=== PATIENT | female | born 1970 | race Caucasian/White ===

== ENCOUNTER 2016-06-06 16:39 | Emergency (ER) | payer OTHER ==
[~2016-06-06] VITALS: Ht 152.4 cm; Wt 67.1 kg
[~2016-06-06 16:39] MED LIST: 'XANAX1 MG PO; ALBUTEROL0.09 MG/A2 INH; ALLERGY RELIEF4 MG PO; AMOXICILLIN500 MG PO; AMOXIL500 MG PO; ANAPROX DS550 MG PO; ANTIVERT/2525 M1 PO; ANTIVERT/2525 MG PO; ANTIVERT25 MG PO; ANUSOL HC30 GM PO; ATARAX,VISTARIL50 MG PO; ATARAX25 MG PO; ATIVAN0.5 MG PO; ATIVAN1 MG PO; AUGMENTIN 875 M1 TA1 PO; AUGMENTIN 875875 MG PO; B12,B-12,B 12500 MC1 PO; BACTRIM 400 MG-1 TAB PO; BACTRIM DS 8001 TA1 PO; BACTROBAN OINT0.9 GM T; BENADRYL ALLERG25 M5 PO; BENADRYL25 M2 PO; CELEXA40 MG PO; CITALOPRAM40 MG PO; CLARITIN-D 12 H1 TAB PO; CLARITIN10 MG PO; CLEOCIN150 MG PO; CLINDAMYCIN HC300 MG PO; CLINDAMYCIN150 MG PO; CLOBEX 125 ML125 ML T; CLONAZEPAM0.5 MG; CLONAZEPAM0.5 MG PO; DELTASONE20 M1 PO; DRAMAMINE50 M1 PO; EXCEDRIN MIGRAI1 TA1 PO; FLEXERIL10 MG PO; FLONASE ALLERG9.9 ML NAS; FLOVENT0.044 MG/A INH; KETOROLAC10 MG PO; KLONOPIN0.5 MG PO; KLONOPIN1 MG PO; LIDEX 0.05% CRE15 GM T; LOTRIMIN 1%15 GM T; MAGNESIUM400 MG PO; MEDROL DOSEPAK4 MG PO; MOTRIN800 MG PO; MUCINEX SINUS-1 EAC1 PO; MUCINEX600 MG PO; NAPROSYN500 MG PO; NAPROXEN550 MG PO; NASONEX0.05 MG/AC NS; NILSTAT,MY500000 UN/ PO; PEPCID20 MG PO; PEPCID40 MG PO; PERCOCET 325 MG1 TA2 PO; PHENERGAN W/DM120 ML PO; PREDNICOT10 MG PO; PREDNISONE10 MG PO; PREDNISONE50 MG PO; PRILOSEC10 MG PO; PROMETHAZINE W180 ML PO; PROTONIX20 MG PO; PROTONIX40 MG PO; PROVENTIL0.09 MG/A1 INH; REGLAN10 MG PO; REMERON15 M1 PO; RISPERDAL0.5 MG PO; ROBITUSSIN; ROBITUSSIN DM 105 ML PO; ROBITUSSIN5 ML PO; SINGULAIR10 MG PO; TESSALON PERLE200 MG PO; TOPROL XL25 MG PO; TRAMADOL50 MG PO; ULTRAM50 MG PO; VALIUM5 MG PO; VIBRAMYCIN100 MG PO; VICO10300 PO; VISTARIL25 M1 PO; VISTARIL25 M2 PO; VISTARIL25 MG PO; XANAX1 MG PO; ZITHROMAX Z PA250 MG PO; ZITHROMAX250 MG PO; ZYRTEC10 MG PO
[2016-06-06] MEDS ORDERED: CELEXA20 MG PO (16:56)
[2016-06-06 17:08] LABS: BASO # 0.1 10*3/uL (0.0-0.1); BASO % 0.7 % (0.0-1.0); EOS # 0.3 10*3/uL (0.0-0.4); EOS % 2.5 % (1.0-4.0); HEMATOCRIT 46.5 % (37.0-47.0); HEMOGLOBIN 15.5 g/dl (12.0-16.0); LYMPH # 2.6 10*3/uL (1.3-4.4); LYMPH % 25.9 % (27.0-41.0); MEAN CELL VOLUME 89.1 fl (81.0-99.0); MEAN CORPUSCULAR HGB 29.7 pg (27.0-31.0); MEAN CORPUSCULAR HGB CONC 33.3 g/dl (33.0-37.0); MEAN PLATELET VOLUME 10.5 fl (9.6-12.3); MONO # 0.8 10*3/uL (0.1-1.0); MONO % 7.6 % (3.0-9.0); NEUT # 6.4 10*3/uL (2.3-7.9); PLATELET COUNT AUTOMATED 314 10*3/uL (130-400); RED BLOOD COUNT 5.22 10*6/uL (4.10-5.10); RED CELL DISTRI WIDTH 13.8 % (0-14.5); WHITE BLOOD COUNT 10.1 10*3/uL (4.8-10.8)
[2016-06-06 17:15] LABS: INTERNATIONAL NORM RATIO 0.9 (2.0-3.5)
[2016-06-06 17:24] LABS: ALBUMIN 3.5 gm/dl (3.1-4.5); ALKALINE PHOSPHATASE 77 U/L (45-117); BILIRUBIN, TOTAL 0.4 mg/dl (0.2-1.0); BUN 7 mg/dl (7-24); CARBON DIOXIDE 21 mmol/L (21-32); CHLORIDE 107 mmol/L (98-107); CKMB < 0.5 ng/ml (0.5-3.6); CPK 54 U/L (26-192); EST GLOM FILT AFRICAN AMERICAN > 60 ml/min; GLUCOSE 91 mg/dL (65-99); LDH 133 U/L (84-246); MAGNESIUM 1.7 mg/dL (1.5-2.1); POTASSIUM 3.6 mmol/L (3.5-5.1); SGOT/AST 14 IU/L (3-35); SGPT/ALT 15 U/L (12-78); SODIUM 139 mmol/L (136-145); TOTAL PROTEIN 6.8 gm/dL (6.4-8.2); TROPONIN I < 0.015 ng/ml (<0.045)
[2016-06-06 17:52] LABS: BILIRUBIN NEGATIVE (NEGATIVE); BLOOD NEGATIVE (NEGATIVE); CLARITY SL CLOUDY (CLEAR); COLOR YELLOW (YELLOW); GLUCOSE NEGATIVE (NEGATIVE); KETONE NEGATIVE (NEGATIVE); LEUKO ESTERASE NEGATIVE (NEGATIVE); NITRITE NEGATIVE (NEGATIVE); PROTEIN NEGATIVE (NEGATIVE); SPECIFIC GRAVITY <= 1.005 (1.005-1.030); UROBILINOGEN 0.2 E.U./dl (0.2-1.0)
[2016-06-06 18:01] LABS: BACTERIA TRACE; RBC 0-2 rbc/hpf (0-2); URINE REFLEX COMMENT NO (NO); WBC 0-2 wbc/hpf (0-5)
[2016-06-06] MEDS ORDERED: XANAX0.5 MG PO (18:11)
[2016-06-06] MEDS ORDERED: ZYRTEC10 MG PO (18:11)
[2016-06-06] MEDS ORDERED: ZITHROMAX250 MG PO (18:11)
== END 2016-06-06 18:25 | disposition home or self-care (01) ==
LOC: ED 16:39
PROVIDERS: Physician Assistant
DX: F41.9 Anxiety disorder, unspecified (principal); R42 Dizziness and giddiness; J40 Bronchitis, not specified as acute or chronic; F17.200 Nicotine dependence, unspecified, uncomplicated; Z98.51 Tubal ligation status; Z90.89 Acquired absence of other organs; Z79.899 Other long term (current) drug therapy; Z88.5 Allergy status to narcotic agent; Z88.0 Allergy status to penicillin; Z88.1 Allergy status to other antibiotic agents

== ENCOUNTER 2016-06-20 13:27 | Emergency (ER) | payer OTHER ==
[~2016-06-20] VITALS: Wt 67.1 kg
[~2016-06-20 13:27] MED LIST changes: +CELEXA20 MG PO; +XANAX0.5 MG PO
[2016-06-20] MEDS ORDERED: NORCO 10-325 T1 EACH PO (15:38)
[2016-06-21] MEDS ORDERED: Zofran4 MG PO (08:37)
== END 2016-06-20 15:49 | disposition home or self-care (01) ==
LOC: ED 13:27
DX: S42.021A Displaced fracture of shaft of right clavicle, initial encounter for closed fracture (principal); S16.1XXA Strain of muscle, fascia and tendon at neck level, initial encounter; S00.93XA Contusion of unspecified part of head, initial encounter; K21.9 Gastro-esophageal reflux disease without esophagitis; F41.9 Anxiety disorder, unspecified; Z88.0 Allergy status to penicillin; Z88.1 Allergy status to other antibiotic agents; Z88.6 Allergy status to analgesic agent; Z79.899 Other long term (current) drug therapy; M19.90 Unspecified osteoarthritis, unspecified site; W10.9XXA Fall (on) (from) unspecified stairs and steps, initial encounter; Y93.89 Activity, other specified; Y92.9 Unspecified place or not applicable; Y99.9 Unspecified external cause status

== ENCOUNTER 2016-06-21 06:51 | Emergency (ER) | payer OTHER ==
[~2016-06-21] VITALS: Ht 152.4 cm; Wt 67.1 kg
[~2016-06-21 06:51] MED LIST changes: +NORCO 10-325 T1 EACH PO
[2016-06-21] MEDS ORDERED: Zofran4 MG PO (08:37)
== END 2016-06-21 09:15 | disposition home or self-care (01) ==
LOC: ED 06:51
DX: R51 Headache (principal); R11.2 Nausea with vomiting, unspecified; F41.9 Anxiety disorder, unspecified; M19.90 Unspecified osteoarthritis, unspecified site; G89.29 Other chronic pain; K21.9 Gastro-esophageal reflux disease without esophagitis; Z88.0 Allergy status to penicillin; Z88.1 Allergy status to other antibiotic agents; Z88.6 Allergy status to analgesic agent; Z79.899 Other long term (current) drug therapy

== ENCOUNTER 2016-07-30 08:36 | Emergency (ER) | payer OTHER ==
[~2016-07-30] VITALS: Wt 67.6 kg
[~2016-07-30 08:36] MED LIST changes: +Zofran4 MG PO
[2016-07-30 09:33] LABS: BASO # 0.1 10*3/uL (0.0-0.1); BASO % 0.5 % (0.0-1.0); EOS # 0.3 10*3/uL (0.0-0.4); EOS % 2.7 % (1.0-4.0); HEMATOCRIT 44.6 % (37.0-47.0); HEMOGLOBIN 15.6 g/dl (12.0-16.0); LYMPH # 2.9 10*3/uL (1.3-4.4); LYMPH % 25.8 % (27.0-41.0); MEAN CELL VOLUME 86.6 fl (81.0-99.0); MEAN CORPUSCULAR HGB 30.3 pg (27.0-31.0); MEAN PLATELET VOLUME 10.5 fl (9.6-12.3); MONO # 0.8 10*3/uL (0.1-1.0); MONO % 7.4 % (3.0-9.0); NEUT # 7.1 10*3/uL (2.3-7.9); NEUT % 63.3 % (47.0-73.0); PLATELET COUNT AUTOMATED 285 10*3/uL (130-400); RED BLOOD COUNT 5.15 10*6/uL (4.10-5.10); RED CELL DISTRI WIDTH 12.9 % (0-14.5); WHITE BLOOD COUNT 11.2 10*3/uL (4.8-10.8)
[2016-07-30 09:46] LABS: ALBUMIN 3.9 gm/dl (3.1-4.5); ALKALINE PHOSPHATASE 78 U/L (45-117); BILIRUBIN, TOTAL 0.3 mg/dl (0.2-1.0); BUN 9 mg/dl (7-24); CARBON DIOXIDE 20 mmol/L (21-32); CHLORIDE 108 mmol/L (98-107); EST GLOM FILT AFRICAN AMERICAN > 60 ml/min; GLUCOSE 110 mg/dL (65-99); POTASSIUM 3.6 mmol/L (3.5-5.1); SGOT/AST 15 IU/L (3-35); SGPT/ALT 16 U/L (12-78); SODIUM 142 mmol/L (136-145); TOTAL PROTEIN 7.2 gm/dL (6.4-8.2)
[2016-07-30 10:51] LABS: BILIRUBIN NEGATIVE (NEGATIVE); BLOOD NEGATIVE (NEGATIVE); CLARITY CLEAR (CLEAR); COLOR YELLOW (YELLOW); GLUCOSE NEGATIVE (NEGATIVE); KETONE NEGATIVE (NEGATIVE); LEUKO ESTERASE NEGATIVE (NEGATIVE); NITRITE NEGATIVE (NEGATIVE); PH 5.5 (5.0-9.0); PROTEIN NEGATIVE (NEGATIVE); SPECIFIC GRAVITY <= 1.005 (1.005-1.030); UROBILINOGEN 0.2 E.U./dl (0.2-1.0)
[2016-07-30 10:58] LABS: URINE REFLEX COMMENT NO (NO)
[2016-07-30] MEDS ORDERED: XANAX1 MG PO (11:09)
[2016-07-30 11:10] LABS: URINE AMPHETAMINES < 1000 (1000ng/ml); URINE BARBITURATES < 200 (200ng/ml); URINE COCAINE < 300 (300ng/ml)
== END 2016-07-30 11:28 | disposition home or self-care (01) ==
LOC: ED 08:36
PROVIDERS: Registered Nurse
DX: F41.9 Anxiety disorder, unspecified (principal); F13.20 Sedative, hypnotic or anxiolytic dependence, uncomplicated; F17.200 Nicotine dependence, unspecified, uncomplicated; Z88.0 Allergy status to penicillin; Z88.1 Allergy status to other antibiotic agents; Z88.6 Allergy status to analgesic agent; Z79.899 Other long term (current) drug therapy

== ENCOUNTER 2016-07-31 18:19 | Emergency (ER) | payer OTHER ==
[~2016-07-31] VITALS: Ht 152.4 cm; Wt 65.8 kg
== END 2016-07-31 19:04 | disposition home or self-care (01) ==
LOC: ED 18:19
DX: F41.9 Anxiety disorder, unspecified (principal); R03.0 Elevated blood-pressure reading, without diagnosis of hypertension; F17.200 Nicotine dependence, unspecified, uncomplicated; K21.9 Gastro-esophageal reflux disease without esophagitis; M19.90 Unspecified osteoarthritis, unspecified site; Z88.0 Allergy status to penicillin; Z88.1 Allergy status to other antibiotic agents; Z88.6 Allergy status to analgesic agent; Z79.899 Other long term (current) drug therapy

== ENCOUNTER → 2016-08-18 | Outpatient (CLI) | payer OTHER | END | disposition home or self-care (01) | LOC: RAD 10:43 | DX: M81.0 Age-related osteoporosis without current pathological fracture (principal) ==

== ENCOUNTER 2016-08-29 11:39 | Emergency (ER) | payer OTHER ==
[~2016-08-29] VITALS: Ht 162.5 cm; Wt 70.3 kg
[2016-08-29 12:30] LABS: BILIRUBIN NEGATIVE (NEGATIVE); BLOOD NEGATIVE (NEGATIVE); CLARITY CLEAR (CLEAR); COLOR STRAW (YELLOW); GLUCOSE NEGATIVE (NEGATIVE); KETONE NEGATIVE (NEGATIVE); LEUKO ESTERASE NEGATIVE (NEGATIVE); NITRITE NEGATIVE (NEGATIVE); PROTEIN NEGATIVE (NEGATIVE); UROBILINOGEN 0.2 E.U./dl (0.2-1.0)
[2016-08-29 12:42] LABS: URINE REFLEX COMMENT NO (NO)
== END 2016-08-29 12:48 | disposition home or self-care (01) ==
LOC: ED 11:39
PROVIDERS: Emergency Medicine
DX: F41.9 Anxiety disorder, unspecified (principal); F13.20 Sedative, hypnotic or anxiolytic dependence, uncomplicated; M19.90 Unspecified osteoarthritis, unspecified site; K21.9 Gastro-esophageal reflux disease without esophagitis; F17.200 Nicotine dependence, unspecified, uncomplicated; Z88.0 Allergy status to penicillin; Z88.1 Allergy status to other antibiotic agents; Z88.6 Allergy status to analgesic agent; Z79.899 Other long term (current) drug therapy

== ENCOUNTER 2016-11-23 10:08 | Emergency (ER) | payer OTHER ==
[~2016-11-23] VITALS: Ht 167.6 cm; Wt 68.0 kg
== END 2016-11-23 10:54 | disposition home or self-care (01) ==
LOC: ED 10:08
DX: F41.0 Panic disorder [episodic paroxysmal anxiety] (principal); K21.9 Gastro-esophageal reflux disease without esophagitis; M19.90 Unspecified osteoarthritis, unspecified site; G89.29 Other chronic pain; F17.200 Nicotine dependence, unspecified, uncomplicated; Z98.51 Tubal ligation status; Z90.89 Acquired absence of other organs; Z98.890 Other specified postprocedural states; Z79.899 Other long term (current) drug therapy; Z88.0 Allergy status to penicillin; Z88.1 Allergy status to other antibiotic agents; Z88.5 Allergy status to narcotic agent

== ENCOUNTER 2017-01-08 09:56 | Emergency (ER) | payer OTHER ==
[~2017-01-08] VITALS: Ht 152.4 cm; Wt 70.8 kg
[2017-01-08 10:15] LABS: BILIRUBIN NEGATIVE (NEGATIVE); BLOOD NEGATIVE (NEGATIVE); CLARITY CLEAR (CLEAR); COLOR YELLOW (YELLOW); GLUCOSE NEGATIVE (NEGATIVE); KETONE NEGATIVE (NEGATIVE); LEUKO ESTERASE NEGATIVE (NEGATIVE); NITRITE NEGATIVE (NEGATIVE); PH 5.5 (5.0-9.0); SPECIFIC GRAVITY <= 1.005 (1.005-1.030); UROBILINOGEN 0.2 E.U./dl (0.2-1.0)
[2017-01-08 10:17] LABS: BASO % 0.3 % (0.0-1.0); EOS # 0.2 10*3/uL (0.0-0.4); EOS % 1.6 % (1.0-4.0); HEMATOCRIT 44.3 % (37.0-47.0); HEMOGLOBIN 14.9 g/dl (12.0-16.0); LYMPH # 3.2 10*3/uL (1.3-4.4); LYMPH % 27.5 % (27.0-41.0); MEAN CELL VOLUME 89.9 fl (81.0-99.0); MEAN CORPUSCULAR HGB 30.2 pg (27.0-31.0); MEAN CORPUSCULAR HGB CONC 33.6 g/dl (33.0-37.0); MEAN PLATELET VOLUME 10.5 fl (9.6-12.3); MONO # 0.8 10*3/uL (0.1-1.0); NEUT # 7.3 10*3/uL (2.3-7.9); NEUT % 63.3 % (47.0-73.0); PLATELET COUNT AUTOMATED 271 10*3/uL (130-400); RED BLOOD COUNT 4.93 10*6/uL (4.10-5.10); RED CELL DISTRI WIDTH 13.4 % (0-14.5); WHITE BLOOD COUNT 11.5 10*3/uL (4.8-10.8)
[2017-01-08 10:23] LABS: URINE AMPHETAMINES < 1000 (1000ng/ml); URINE BARBITURATES < 200 (200ng/ml); URINE BENZODIAZEPINES > 200 (200ng/ml); URINE CANNABINOIDS (THC) < 50 (50ng/ml); URINE COCAINE < 300 (300ng/ml); URINE METHADONE < 300 (300ng/ml); URINE OPIATES < 300 (300ng/ml)
[2017-01-08 10:25] LABS: URINE PHENCYCLIDINE < 25 (25ng/ml)
[2017-01-08 10:31] LABS: ACETAMINOPHEN (TYLENOL) 2.1 ug/ml (10-30); ALBUMIN 3.5 gm/dl (3.1-4.5); ALKALINE PHOSPHATASE 76 U/L (45-117); BUN 7 mg/dl (7-24); CHLORIDE 106 mmol/L (98-107); CREATININE 0.73 mg/dL (0.55-1.02); POTASSIUM 3.5 mmol/L (3.5-5.1); SGOT/AST 16 IU/L (3-35); SGPT/ALT 14 U/L (12-78); SODIUM 140 mmol/L (136-145)
[2017-01-08 10:32] LABS: WBC 0-2 wbc/hpf (0-5)
[2017-01-08 10:36] LABS: ETHYL ALCOHOL < 3.0 mg/dl (<3)
== END 2017-01-08 11:34 | disposition home or self-care (01) ==
LOC: ED 09:56
PROVIDERS: Emergency Medicine
DX: F41.9 Anxiety disorder, unspecified (principal); F13.10 Sedative, hypnotic or anxiolytic abuse, uncomplicated; M19.90 Unspecified osteoarthritis, unspecified site; G89.29 Other chronic pain; K21.9 Gastro-esophageal reflux disease without esophagitis; Z79.899 Other long term (current) drug therapy; Z98.51 Tubal ligation status; Z90.89 Acquired absence of other organs; Z88.0 Allergy status to penicillin; Z88.1 Allergy status to other antibiotic agents; Z88.5 Allergy status to narcotic agent

== ENCOUNTER 2017-01-10 08:44 | Emergency (ER) | payer OTHER ==
[~2017-01-10] VITALS: Ht 152.4 cm; Wt 70.8 kg
[2017-01-10] MEDS ORDERED: XANAX0.25 MG PO (09:07)
== END 2017-01-10 10:54 | disposition home or self-care (01) ==
LOC: ED 08:44
DX: F41.9 Anxiety disorder, unspecified (principal); F13.10 Sedative, hypnotic or anxiolytic abuse, uncomplicated; Z98.51 Tubal ligation status; Z90.89 Acquired absence of other organs; Z79.899 Other long term (current) drug therapy; Z88.0 Allergy status to penicillin; Z88.5 Allergy status to narcotic agent; Z88.1 Allergy status to other antibiotic agents

== ENCOUNTER 2017-01-19 08:47 | Emergency (ER) | payer OTHER ==
[~2017-01-19] VITALS: Ht 152.4 cm; Wt 69.9 kg
[~2017-01-19 08:47] MED LIST changes: +XANAX0.25 MG PO
[2017-01-19 10:00] LABS: BASO % 0.3 % (0.0-1.0); EOS # 0.2 10*3/uL (0.0-0.4); EOS % 1.6 % (1.0-4.0); HEMATOCRIT 44.8 % (37.0-47.0); HEMOGLOBIN 15.3 g/dl (12.0-16.0); LYMPH # 2.4 10*3/uL (1.3-4.4); LYMPH % 23.6 % (27.0-41.0); MEAN CELL VOLUME 89.4 fl (81.0-99.0); MEAN CORPUSCULAR HGB 30.5 pg (27.0-31.0); MEAN CORPUSCULAR HGB CONC 34.2 g/dl (33.0-37.0); MEAN PLATELET VOLUME 10.4 fl (9.6-12.3); MONO # 0.8 10*3/uL (0.1-1.0); MONO % 7.7 % (3.0-9.0); NEUT # 6.7 10*3/uL (2.3-7.9); NEUT % 66.4 % (47.0-73.0); PLATELET COUNT AUTOMATED 308 10*3/uL (130-400); RED BLOOD COUNT 5.01 10*6/uL (4.10-5.10); RED CELL DISTRI WIDTH 13.8 % (0-14.5)
[2017-01-19 10:19] LABS: ALBUMIN 3.9 gm/dl (3.1-4.5); ALKALINE PHOSPHATASE 75 U/L (45-117); BUN 5 mg/dl (7-24); CHLORIDE 105 mmol/L (98-107); POTASSIUM 3.5 mmol/L (3.5-5.1); SGOT/AST 10 IU/L (3-35); SGPT/ALT 15 U/L (12-78); SODIUM 138 mmol/L (136-145); TOTAL PROTEIN 7.2 gm/dL (6.4-8.2)
[2017-01-19 10:21] LABS: TROPONIN I < 0.015 ng/ml (<0.045)
[2017-01-19 10:37] LABS: BILIRUBIN NEGATIVE (NEGATIVE); BLOOD NEGATIVE (NEGATIVE); CLARITY SL CLOUDY (CLEAR); COLOR YELLOW (YELLOW); GLUCOSE NEGATIVE (NEGATIVE); KETONE TRACE (NEGATIVE); LEUKO ESTERASE NEGATIVE (NEGATIVE); NITRITE NEGATIVE (NEGATIVE); SPECIFIC GRAVITY 1.015 (1.005-1.030); UROBILINOGEN 0.2 E.U./dl (0.2-1.0)
[2017-01-19 10:52] LABS: BACTERIA 3+; MUCOUS 2+
[2017-01-19 10:57] LABS: URINE AMPHETAMINES < 1000 (1000ng/ml); URINE BARBITURATES < 200 (200ng/ml); URINE BENZODIAZEPINES > 200 (200ng/ml); URINE CANNABINOIDS (THC) < 50 (50ng/ml); URINE COCAINE < 300 (300ng/ml); URINE METHADONE < 300 (300ng/ml); URINE OPIATES < 300 (300ng/ml)
[2017-01-19 11:01] LABS: URINE PHENCYCLIDINE < 25 (25ng/ml)
[2017-01-20] MEDS ORDERED: VITAMIN D31000 UNI1 PO (11:12)
[2017-01-20] MEDS ORDERED: NATURE'S BLEND F1 MG PO (11:12)
[2017-01-20] MEDS ORDERED: B12,B-12,B 12500 MC1 PO (11:12)
[2017-01-20] MEDS ORDERED: XANAX1 MG PO (11:12)
== END 2017-01-19 12:44 | disposition home or self-care (01) ==
LOC: ED 08:47
PROVIDERS: Physician Assistant
DX: F19.939 Other psychoactive substance use, unspecified with withdrawal, unspecified (principal); Z88.0 Allergy status to penicillin; Z88.6 Allergy status to analgesic agent; Z88.8 Allergy status to other drugs, medicaments and biological substances; Z79.899 Other long term (current) drug therapy; Z90.89 Acquired absence of other organs; Z90.49 Acquired absence of other specified parts of digestive tract; F17.200 Nicotine dependence, unspecified, uncomplicated

== ENCOUNTER 2017-01-19 17:55 | Inpatient (IN) | payer OTHER ==
[~2017-01-19] VITALS: Ht 152.4 cm; Wt 68.2 kg
[2017-01-19 18:00] VITALS: BP 115/64
[2017-01-19 20:23] VITALS: BP 103/65
--- NOTE | 2017-01-19 20:23 | NUR ---
Patient arrived from [facility] via wheelchair. Vitals are stable. Patient is tearful at times. No signs of distress. Will continue to monitor.
--- NOTE | 2017-01-19 20:48 | NUR ---
Patient reports she is a non-drinker. Patient is ordered Librium. Dr. Preciado notified that patient is non-drinker. He said he will look at the order.
--- NOTE | 2017-01-19 21:10 | NUR ---
RESTORIL GIVEN FOR C/O INSOMNIA.
--- NOTE | 2017-01-19 21:26 | NUR ---
SCHEDULED LIBRIUM GIVEN.
--- NOTE | 2017-01-19 21:26 | NUR ---
I spoke to Dr. Limon about the Librium. He said Librium is okay to give patient. Patient given educational flyer on Librium. Will moniitor for effectiveness.
--- NOTE | 2017-01-19 22:10 | NUR ---
PATIENT STATES SHE FEELS BETTER (LESS ANXIOUS AND SHAKY). STATES SHE IS TIRED AND IS GOING TO GO TO SLEEP. RESTORIL AND LIBRIUM EFFECTIVE.
[2017-01-20] VITALS: BP 101/58
--- NOTE | 2017-01-20 02:06 | NUR ---
SCHEDULED LIBRIUM GIVEN.
--- NOTE | 2017-01-20 03:06 | NUR ---
NO SIGNS OF WITHDRAWAL. PATIENT ASLEEP. LIBRIUM EFFECTIVE.
[2017-01-20 04:00] VITALS: BP 107/54
[2017-01-20 06:10] LABS: BASO # 0.1 10*3/uL (0.0-0.1); BASO % 0.6 % (0.0-1.0); EOS # 0.3 10*3/uL (0.0-0.4); EOS % 3.9 % (1.0-4.0); HEMATOCRIT 41.9 % (37.0-47.0); LYMPH # 4.1 10*3/uL (1.3-4.4); LYMPH % 50.8 % (27.0-41.0); MEAN CELL VOLUME 90.3 fl (81.0-99.0); MEAN CORPUSCULAR HGB 30.2 pg (27.0-31.0); MEAN CORPUSCULAR HGB CONC 33.4 g/dl (33.0-37.0); MEAN PLATELET VOLUME 10.9 fl (9.6-12.3); MONO # 0.9 10*3/uL (0.1-1.0); MONO % 10.9 % (3.0-9.0); NEUT # 2.7 10*3/uL (2.3-7.9); NEUT % 33.3 % (47.0-73.0); PLATELET COUNT AUTOMATED 282 10*3/uL (130-400); RED BLOOD COUNT 4.64 10*6/uL (4.10-5.10); RED CELL DISTRI WIDTH 13.7 % (0-14.5)
[2017-01-20 06:13] LABS: BUN 5 mg/dl (7-24); CHLORIDE 109 mmol/L (98-107); CHOLESTEROL 160 mg/dL (<200); CREATININE 0.58 mg/dL (0.55-1.02); POTASSIUM 3.4 mmol/L (3.5-5.1); SODIUM 142 mmol/L (136-145)
[2017-01-20 06:18] LABS: HDL CHOLESTEROL 34 mg/dl (40-60); LDL CHOLESTEROL 101 mg/dL (9-159); PHOSPHOROUS 4.4 mg/dL (2.5-4.9); TRIGLYCERIDES 124 mg/dl (<150); VLDL CHOLESTEROL 25 mg/dL (6-40)
[2017-01-20 08:00] VITALS: BP 91/56
--- NOTE | 2017-01-20 08:02 | NUR ---
PT MEDICATED WITH TYLENOL 650MG PO FOR C/O HEADACHE PAIN.
[2017-01-20 09:49] LABS: VITAMIN D, 25-HYDROXY 20.4 ng/mL (30-100)
--- NOTE | 2017-01-20 10:40 | NUR ---
[place] STAFF WILL PROVIDE PATIENT WILL A LIST OF AFTERCARE REFERRALS. PATIENT IS HIGH PSYCH AND IS NOT APPROPRIATE FOR NEW VISION SERVICES. [facility] CALL CENTER RECRUITER
--- NOTE | 2017-01-20 10:51 | NUR ---
PATTI FROM [facility] SEE PT ABOUT FOLLOW UP CARE.
[2017-01-20] MEDS ORDERED: B12,B-12,B 12500 MC1 PO (11:12)
[2017-01-20] MEDS ORDERED: XANAX1 MG PO (11:12)
[2017-01-20] MEDS ORDERED: VITAMIN D31000 UNI1 PO (11:12)
[2017-01-20] MEDS ORDERED: NATURE'S BLEND F1 MG PO (11:12)
--- NOTE | 2017-01-20 11:27 | NUR ---
DR THORPE IN TO SEE PT. DISCHARGE ORDERS RECEIVED.
--- NOTE | 2017-01-20 11:32 | NUR ---
Discharge instructions reviewed with patient/family. Patient receptive and verbalizes understanding. Follow-up care arranged. Written instructions given to patient/family. SHAYE BEAR
--- NOTE | 2017-01-20 12:00 | NUR ---
PT DISCHARGED AT THS TIME WITH MOTHER TO HOME.
== END 2017-01-20 12:00 | disposition home or self-care (01) | DRG 897 ==
LOC: ED 17:55 → ICCU 18:25 → EDHOLD 18:25 → 5E 18:30 → ICCU 19:49
PROVIDERS: Internal Medicine Nephrology; ADMIT Internal Medicine
DX: F13.230 Sedative, hypnotic or anxiolytic dependence with withdrawal, uncomplicated (principal); E87.2 Acidosis; E53.8 Deficiency of other specified B group vitamins; M19.90 Unspecified osteoarthritis, unspecified site; J44.9 Chronic obstructive pulmonary disease, unspecified; F32.9 Major depressive disorder, single episode, unspecified; K21.9 Gastro-esophageal reflux disease without esophagitis; E78.5 Hyperlipidemia, unspecified; I10 Essential (primary) hypertension; F17.210 Nicotine dependence, cigarettes, uncomplicated; R73.9 Hyperglycemia, unspecified; G89.29 Other chronic pain; J30.89 Other allergic rhinitis; R42 Dizziness and giddiness; F41.0 Panic disorder [episodic paroxysmal anxiety]; E55.9 Vitamin D deficiency, unspecified; Z88.0 Allergy status to penicillin; Z88.5 Allergy status to narcotic agent; Z88.1 Allergy status to other antibiotic agents; Z71.6 Tobacco abuse counseling; Z88.8 Allergy status to other drugs, medicaments and biological substances; Z79.899 Other long term (current) drug therapy; Z81.8 Family history of other mental and behavioral disorders; Z98.51 Tubal ligation status; Z82.3 Family history of stroke

== ENCOUNTER 2017-03-05 13:51 | Emergency (ER) | payer OTHER ==
[~2017-03-05] VITALS: Ht 152.4 cm; Wt 68.0 kg
[~2017-03-05 13:51] MED LIST changes: +NATURE'S BLEND F1 MG PO; +VITAMIN D31000 UNI1 PO
[2017-03-05 15:07] LABS: BASO # 0.1 10*3/uL (0.0-0.1); BASO % 0.5 % (0.0-1.0); EOS # 0.2 10*3/uL (0.0-0.4); EOS % 2.3 % (1.0-4.0); HEMATOCRIT 45.4 % (37.0-47.0); HEMOGLOBIN 15.2 g/dl (12.0-16.0); LYMPH # 2.9 10*3/uL (1.3-4.4); LYMPH % 29.9 % (27.0-41.0); MEAN CELL VOLUME 89.7 fl (81.0-99.0); MEAN CORPUSCULAR HGB CONC 33.5 g/dl (33.0-37.0); MEAN PLATELET VOLUME 10.8 fl (9.6-12.3); MONO # 0.6 10*3/uL (0.1-1.0); MONO % 6.5 % (3.0-9.0); NEUT # 5.9 10*3/uL (2.3-7.9); NEUT % 60.6 % (47.0-73.0); PLATELET COUNT AUTOMATED 269 10*3/uL (130-400); RED BLOOD COUNT 5.06 10*6/uL (4.10-5.10); RED CELL DISTRI WIDTH 13.7 % (0-14.5); WHITE BLOOD COUNT 9.8 10*3/uL (4.8-10.8)
[2017-03-05 15:19] LABS: BILIRUBIN NEGATIVE (NEGATIVE); BLOOD NEGATIVE (NEGATIVE); CLARITY CLEAR (CLEAR); COLOR YELLOW (YELLOW); GLUCOSE NEGATIVE (NEGATIVE); KETONE NEGATIVE (NEGATIVE); LEUKO ESTERASE NEGATIVE (NEGATIVE); NITRITE NEGATIVE (NEGATIVE); PH 5.5 (5.0-9.0); SPECIFIC GRAVITY <= 1.005 (1.005-1.030); UROBILINOGEN 0.2 E.U./dl (0.2-1.0)
[2017-03-05 15:24] LABS: ALBUMIN 3.7 gm/dl (3.1-4.5); ALKALINE PHOSPHATASE 77 U/L (45-117); BUN 8 mg/dl (7-24); CHLORIDE 108 mmol/L (98-107); CREATININE 0.71 mg/dL (0.55-1.02); SGOT/AST 11 IU/L (3-35); SGPT/ALT 14 U/L (12-78); SODIUM 140 mmol/L (136-145)
[2017-03-05 15:25] LABS: BACTERIA 1+; RBC 0-2 rbc/hpf (0-2); WBC 0-2 wbc/hpf (0-5)
[2017-03-05 15:27] LABS: URINE AMPHETAMINES < 1000 (1000ng/ml); URINE BARBITURATES < 200 (200ng/ml); URINE BENZODIAZEPINES < 200 (200ng/ml); URINE CANNABINOIDS (THC) < 50 (50ng/ml); URINE COCAINE < 300 (300ng/ml); URINE METHADONE < 300 (300ng/ml); URINE OPIATES < 300 (300ng/ml); URINE PHENCYCLIDINE < 25 (25ng/ml)
[2017-03-05] MEDS ORDERED: FLOVENT HFA12 GM INH (16:42)
[2017-03-05] MEDS ORDERED: ZITHROMAX250 MG PO (16:42)
== END 2017-03-05 16:52 | disposition home or self-care (01) ==
LOC: ED 13:51
PROVIDERS: Physician Assistant
DX: F41.9 Anxiety disorder, unspecified (principal); H92.01 Otalgia, right ear; F17.200 Nicotine dependence, unspecified, uncomplicated; J44.9 Chronic obstructive pulmonary disease, unspecified; Z98.51 Tubal ligation status; Z90.89 Acquired absence of other organs; Z79.899 Other long term (current) drug therapy; Z88.0 Allergy status to penicillin; Z88.1 Allergy status to other antibiotic agents; Z88.5 Allergy status to narcotic agent; Z88.8 Allergy status to other drugs, medicaments and biological substances

== ENCOUNTER 2017-03-07 09:03 | Emergency (ER) | payer OTHER ==
[~2017-03-07] VITALS: Ht 152.4 cm; Wt 68.0 kg
[~2017-03-07 09:03] MED LIST changes: +FLOVENT HFA12 GM INH
[2017-03-07] MEDS ORDERED: XANAX0.5 MG PO (10:30)
== END 2017-03-07 11:21 | disposition home or self-care (01) ==
LOC: ED 09:03
DX: F41.9 Anxiety disorder, unspecified (principal); F17.200 Nicotine dependence, unspecified, uncomplicated; Z98.51 Tubal ligation status; Z90.89 Acquired absence of other organs; Z79.899 Other long term (current) drug therapy; Z88.1 Allergy status to other antibiotic agents; Z88.0 Allergy status to penicillin; Z88.5 Allergy status to narcotic agent

== ENCOUNTER 2017-03-10 12:10 | Emergency (ER) | payer OTHER ==
[~2017-03-10] VITALS: Ht 165.1 cm; Wt 68.0 kg
[2017-03-10 12:57] LABS: BASO # 0.1 10*3/uL (0.0-0.1); BASO % 0.6 % (0.0-1.0); EOS # 0.2 10*3/uL (0.0-0.4); EOS % 1.9 % (1.0-4.0); HEMATOCRIT 44.3 % (37.0-47.0); HEMOGLOBIN 15.1 g/dl (12.0-16.0); LYMPH # 2.9 10*3/uL (1.3-4.4); LYMPH % 23.4 % (27.0-41.0); MEAN CELL VOLUME 89.7 fl (81.0-99.0); MEAN CORPUSCULAR HGB 30.6 pg (27.0-31.0); MEAN CORPUSCULAR HGB CONC 34.1 g/dl (33.0-37.0); MEAN PLATELET VOLUME 10.5 fl (9.6-12.3); MONO # 0.8 10*3/uL (0.1-1.0); MONO % 6.1 % (3.0-9.0); NEUT # 8.4 10*3/uL (2.3-7.9); NEUT % 67.8 % (47.0-73.0); PLATELET COUNT AUTOMATED 283 10*3/uL (130-400); RED BLOOD COUNT 4.94 10*6/uL (4.10-5.10); RED CELL DISTRI WIDTH 13.6 % (0-14.5); WHITE BLOOD COUNT 12.4 10*3/uL (4.8-10.8)
[2017-03-10 13:06] LABS: ACT PARTIAL THROMBO TIME 24.3 SECONDS (20.8-31.5)
[2017-03-10 13:12] LABS: ALBUMIN 3.7 gm/dl (3.1-4.5); ALKALINE PHOSPHATASE 76 U/L (45-117); BUN 7 mg/dl (7-24); CHLORIDE 110 mmol/L (98-107); CREATININE 0.77 mg/dL (0.55-1.02); ETHYL ALCOHOL < 3.0 mg/dl (<3); POTASSIUM 3.9 mmol/L (3.5-5.1); SGOT/AST 13 IU/L (3-35); SGPT/ALT 14 U/L (12-78); SODIUM 142 mmol/L (136-145); TOTAL PROTEIN 6.9 gm/dL (6.4-8.2); TROPONIN I < 0.015 ng/ml (<0.045)
[2017-03-10 13:17] LABS: BILIRUBIN NEGATIVE (NEGATIVE); BLOOD NEGATIVE (NEGATIVE); CLARITY CLEAR (CLEAR); COLOR STRAW (YELLOW); GLUCOSE NEGATIVE (NEGATIVE); KETONE NEGATIVE (NEGATIVE); LEUKO ESTERASE NEGATIVE (NEGATIVE); NITRITE NEGATIVE (NEGATIVE); PH 5.5 (5.0-9.0); SPECIFIC GRAVITY <= 1.005 (1.005-1.030); UROBILINOGEN 0.2 E.U./dl (0.2-1.0)
[2017-03-10 13:22] LABS: URINE AMPHETAMINES < 1000 (1000ng/ml); URINE BARBITURATES < 200 (200ng/ml); URINE BENZODIAZEPINES < 200 (200ng/ml); URINE CANNABINOIDS (THC) < 50 (50ng/ml); URINE COCAINE < 300 (300ng/ml); URINE METHADONE < 300 (300ng/ml); URINE OPIATES < 300 (300ng/ml)
[2017-03-10 13:23] LABS: URINE PHENCYCLIDINE < 25 (25ng/ml)
[2017-03-10 13:24] LABS: BACTERIA TRACE; WBC 0-2 wbc/hpf (0-5)
[2017-03-10] MEDS ORDERED: VISTARIL50 MG PO (13:34)
[2017-03-11] MEDS ORDERED: XANAX0.5 MG PO (10:13)
== END 2017-03-10 14:07 | disposition home or self-care (01) ==
LOC: ED 12:10
PROVIDERS: Internal Medicine
DX: F41.9 Anxiety disorder, unspecified (principal); F13.20 Sedative, hypnotic or anxiolytic dependence, uncomplicated; K21.9 Gastro-esophageal reflux disease without esophagitis; I10 Essential (primary) hypertension; J44.9 Chronic obstructive pulmonary disease, unspecified; G89.29 Other chronic pain; E78.00 Pure hypercholesterolemia, unspecified; Z88.0 Allergy status to penicillin; Z88.5 Allergy status to narcotic agent; Z88.1 Allergy status to other antibiotic agents

== ENCOUNTER 2017-03-11 07:29 | Emergency (ER) | payer OTHER ==
[~2017-03-11] VITALS: Ht 152.4 cm; Wt 68.0 kg
[~2017-03-11 07:29] MED LIST changes: +VISTARIL50 MG PO
[2017-03-11] MEDS ORDERED: XANAX0.5 MG PO (10:13)
== END 2017-03-11 10:35 | disposition home or self-care (01) ==
LOC: ED 07:29
DX: F13.20 Sedative, hypnotic or anxiolytic dependence, uncomplicated (principal); G89.29 Other chronic pain; J44.9 Chronic obstructive pulmonary disease, unspecified; K21.9 Gastro-esophageal reflux disease without esophagitis; M19.90 Unspecified osteoarthritis, unspecified site; E78.5 Hyperlipidemia, unspecified; I10 Essential (primary) hypertension; F17.200 Nicotine dependence, unspecified, uncomplicated; F41.9 Anxiety disorder, unspecified; F32.9 Major depressive disorder, single episode, unspecified; Z98.51 Tubal ligation status; Z90.89 Acquired absence of other organs; Z79.899 Other long term (current) drug therapy; Z88.0 Allergy status to penicillin; Z88.1 Allergy status to other antibiotic agents; Z88.5 Allergy status to narcotic agent

== ENCOUNTER 2017-03-17 04:43 | Emergency (ER) | payer OTHER ==
[~2017-03-17] VITALS: Ht 152.4 cm; Wt 68.0 kg
[2017-03-17 05:07] LABS: BASO # 0.1 10*3/uL (0.0-0.1); BASO % 0.6 % (0.0-1.0); EOS # 0.4 10*3/uL (0.0-0.4); EOS % 4.7 % (1.0-4.0); HEMATOCRIT 45.7 % (37.0-47.0); HEMOGLOBIN 15.3 g/dl (12.0-16.0); LYMPH # 3.3 10*3/uL (1.3-4.4); MEAN CELL VOLUME 89.8 fl (81.0-99.0); MEAN CORPUSCULAR HGB 30.1 pg (27.0-31.0); MEAN CORPUSCULAR HGB CONC 33.5 g/dl (33.0-37.0); MEAN PLATELET VOLUME 10.3 fl (9.6-12.3); MONO # 0.9 10*3/uL (0.1-1.0); NEUT # 4.8 10*3/uL (2.3-7.9); NEUT % 50.4 % (47.0-73.0); PLATELET COUNT AUTOMATED 273 10*3/uL (130-400); RED BLOOD COUNT 5.09 10*6/uL (4.10-5.10); RED CELL DISTRI WIDTH 13.6 % (0-14.5); WHITE BLOOD COUNT 9.4 10*3/uL (4.8-10.8)
[2017-03-17 05:24] LABS: BILIRUBIN NEGATIVE (NEGATIVE); BLOOD NEGATIVE (NEGATIVE); CLARITY CLEAR (CLEAR); COLOR YELLOW (YELLOW); GLUCOSE NEGATIVE (NEGATIVE); KETONE NEGATIVE (NEGATIVE); LEUKO ESTERASE NEGATIVE (NEGATIVE); NITRITE NEGATIVE (NEGATIVE); UROBILINOGEN 0.2 E.U./dl (0.2-1.0)
[2017-03-17 05:25] LABS: ACETAMINOPHEN (TYLENOL) < 2.0 ug/ml (10-30); ALBUMIN 3.8 gm/dl (3.1-4.5); ALKALINE PHOSPHATASE 79 U/L (45-117); BUN 10 mg/dl (7-24); CHLORIDE 107 mmol/L (98-107); ETHYL ALCOHOL < 3.0 mg/dl (<3); POTASSIUM 3.8 mmol/L (3.5-5.1); SGOT/AST 16 IU/L (3-35); SGPT/ALT 18 U/L (12-78); SODIUM 139 mmol/L (136-145); TOTAL PROTEIN 6.8 gm/dL (6.4-8.2)
[2017-03-17 05:31] LABS: WBC 0-2 wbc/hpf (0-5)
[2017-03-17 05:32] LABS: URINE AMPHETAMINES < 1000 (1000ng/ml); URINE BARBITURATES < 200 (200ng/ml); URINE BENZODIAZEPINES < 200 (200ng/ml); URINE CANNABINOIDS (THC) < 50 (50ng/ml); URINE COCAINE < 300 (300ng/ml); URINE METHADONE < 300 (300ng/ml); URINE OPIATES < 300 (300ng/ml)
[2017-03-17 05:36] LABS: URINE PHENCYCLIDINE < 25 (25ng/ml)
== END 2017-03-17 09:31 | disposition home or self-care (01) ==
LOC: ED 04:43
PROVIDERS: Emergency Medicine Emergency Medical Services
DX: F13.20 Sedative, hypnotic or anxiolytic dependence, uncomplicated (principal); G47.00 Insomnia, unspecified; K21.9 Gastro-esophageal reflux disease without esophagitis; E78.5 Hyperlipidemia, unspecified; I10 Essential (primary) hypertension; J44.9 Chronic obstructive pulmonary disease, unspecified; Z88.0 Allergy status to penicillin; Z88.1 Allergy status to other antibiotic agents; Z88.6 Allergy status to analgesic agent; Z88.8 Allergy status to other drugs, medicaments and biological substances; Z79.899 Other long term (current) drug therapy; Z87.891 Personal history of nicotine dependence

== ENCOUNTER 2017-04-09 14:17 | Emergency (ER) | payer OTHER ==
[~2017-04-09] VITALS: Ht 157.4 cm; Wt 54.4 kg
[2017-04-09] MEDS ORDERED: ATARAX,VISTARIL50 MG PO (15:15)
== END 2017-04-09 15:32 | disposition home or self-care (01) ==
LOC: ED 14:17
DX: F41.9 Anxiety disorder, unspecified (principal); F19.10 Other psychoactive substance abuse, uncomplicated; F17.200 Nicotine dependence, unspecified, uncomplicated; M19.90 Unspecified osteoarthritis, unspecified site; G89.29 Other chronic pain; J44.9 Chronic obstructive pulmonary disease, unspecified; K21.9 Gastro-esophageal reflux disease without esophagitis; E78.5 Hyperlipidemia, unspecified; I10 Essential (primary) hypertension; Z79.899 Other long term (current) drug therapy; Z88.0 Allergy status to penicillin; Z98.51 Tubal ligation status; Z90.89 Acquired absence of other organs; Z88.1 Allergy status to other antibiotic agents; Z88.5 Allergy status to narcotic agent; Z88.8 Allergy status to other drugs, medicaments and biological substances

== ENCOUNTER 2017-04-10 23:12 | Emergency (ER) | payer OTHER ==
[~2017-04-10] VITALS: Wt 79.4 kg
[2017-04-10 23:38] LABS: BILIRUBIN NEGATIVE (NEGATIVE); BLOOD NEGATIVE (NEGATIVE); CLARITY CLEAR (CLEAR); COLOR YELLOW (YELLOW); GLUCOSE NEGATIVE (NEGATIVE); KETONE NEGATIVE (NEGATIVE); LEUKO ESTERASE NEGATIVE (NEGATIVE); NITRITE NEGATIVE (NEGATIVE); PH 5.5 (5.0-9.0); SPECIFIC GRAVITY <= 1.005 (1.005-1.030); UROBILINOGEN 0.2 E.U./dl (0.2-1.0)
[2017-04-10 23:49] LABS: HEMATOCRIT 41.1 % (37.0-47.0); HEMOGLOBIN 13.9 g/dl (12.0-16.0); MEAN CELL VOLUME 90.3 fl (81.0-99.0); MEAN CORPUSCULAR HGB 30.5 pg (27.0-31.0); MEAN CORPUSCULAR HGB CONC 33.8 g/dl (33.0-37.0); MEAN PLATELET VOLUME 10.6 fl (9.6-12.3); PLATELET COUNT AUTOMATED 281 10*3/uL (130-400); RED BLOOD COUNT 4.55 10*6/uL (4.10-5.10); RED CELL DISTRI WIDTH 13.7 % (0-14.5); WHITE BLOOD COUNT 10.4 10*3/uL (4.8-10.8)
[2017-04-11 00:07] LABS: ALBUMIN 3.6 gm/dl (3.1-4.5); ALKALINE PHOSPHATASE 79 U/L (45-117); BUN 7 mg/dl (7-24); CHLORIDE 112 mmol/L (98-107); CREATININE 0.71 mg/dL (0.55-1.02); LIPASE 193 U/L (73-393); POTASSIUM 3.7 mmol/L (3.5-5.1); SGOT/AST 27 IU/L (3-35); SGPT/ALT 16 U/L (12-78); SODIUM 142 mmol/L (136-145)
[2017-04-11 00:08] LABS: ATYPICAL LYMPHS 2 % (0-0); TOTAL CELLS COUNTED 100 #CELLS
[2017-04-11 00:09] LABS: PLATELET SUFFICIENCY NORMAL (NORMAL)
[2017-04-11 00:14] LABS: EPITHELIAL CELLS 0-5; WBC 0-2 wbc/hpf (0-5)
== END 2017-04-11 01:44 | disposition home or self-care (01) ==
LOC: ED 23:12
PROVIDERS: Nurse Practitioner Family
DX: K44.9 Diaphragmatic hernia without obstruction or gangrene (principal); F41.9 Anxiety disorder, unspecified; J44.9 Chronic obstructive pulmonary disease, unspecified; F32.9 Major depressive disorder, single episode, unspecified; K21.9 Gastro-esophageal reflux disease without esophagitis; E78.5 Hyperlipidemia, unspecified; G89.29 Other chronic pain; I10 Essential (primary) hypertension; G47.00 Insomnia, unspecified; F17.210 Nicotine dependence, cigarettes, uncomplicated; R73.9 Hyperglycemia, unspecified; Z88.0 Allergy status to penicillin; Z88.1 Allergy status to other antibiotic agents; Z88.5 Allergy status to narcotic agent; Z88.8 Allergy status to other drugs, medicaments and biological substances; Z79.899 Other long term (current) drug therapy; Z90.89 Acquired absence of other organs; Z98.51 Tubal ligation status

== ENCOUNTER 2017-07-28 16:19 | Emergency (ER) | payer OTHER ==
[~2017-07-28] VITALS: Ht 152.4 cm; Wt 66.7 kg
== END 2017-07-28 18:28 | disposition home or self-care (01) ==
LOC: ED 16:19
DX: F41.9 Anxiety disorder, unspecified (principal); Z98.51 Tubal ligation status; Z90.89 Acquired absence of other organs; Z79.899 Other long term (current) drug therapy; Z88.0 Allergy status to penicillin; Z88.1 Allergy status to other antibiotic agents; Z88.5 Allergy status to narcotic agent; Z88.6 Allergy status to analgesic agent

== ENCOUNTER → 2018-04-28 | Outpatient (CLI) | payer OTHER ==
[~2018-04-28] MED LIST changes: +LEVAQUIN750 M1 PO; +TAMIFLU 75MG CA75 MG PO
[2018-04-28 16:25] LABS: HEMATOCRIT 47.9 % (37.0-47.0); HEMOGLOBIN 15.8 g/dl (12.0-16.0); MEAN CELL VOLUME 87.9 fl (81.0-99.0); RED BLOOD COUNT 5.45 10*6/uL (4.10-5.10); RED CELL DISTRI WIDTH 14.6 % (0-14.5); WHITE BLOOD COUNT 11.5 10*3/uL (4.8-10.8)
[2018-04-28 16:55] LABS: ALBUMIN 3.4 gm/dl (3.1-4.5); ALKALINE PHOSPHATASE 80 U/L (45-117); BUN 16 mg/dl (7-24); CHLORIDE 102 mmol/L (98-107); CREATININE 0.81 mg/dL (0.55-1.02); POTASSIUM 3.2 mmol/L (3.5-5.1); SGOT/AST 24 IU/L (3-35); SGPT/ALT 29 U/L (12-78); SODIUM 137 mmol/L (136-145); TOTAL PROTEIN 7.6 gm/dL (6.4-8.2)
== END | disposition home or self-care (01) ==
LOC: LAB 16:08
PROVIDERS: Family Medicine
DX: J09.X1 Influenza due to identified novel influenza A virus with pneumonia (principal)

== ENCOUNTER 2019-01-03 15:04 | Inpatient (IN) | payer OTHER ==
[~2019-01-03] VITALS: Ht 152.4 cm; Wt 67.2 kg
--- NOTE | ~2019-01-03 | CON ---
[place], [place] REPORT OF CONSULTATION NAME: KAYE MARTINEZ UNIT #: [id number] ROOM: [facility] DOCTOR: PHD YANE CRESPO BIRTHDATE: [birth year] DOS: 01/04/2019 HISTORY OF PRESENT ILLNESS: The patient is a 48-year-old female referred by Dr. Gómez with concerns for depression and anxiety. At the present time, the patient is in the ICU at [facility]. The patient presented to the ED after taking 5 packets of aspirin and Tylenol combination powder. She took the medication due to headache. She is also experiencing significant anxiety because she threw away her Valium as prescribed by her psychiatrist after her counselor expressed concerns about her taking a benzodiazepine, with her history of benzodiazepine abuse. She follows with [facility]. She lives alone and is . She has 2 adult children. She denied alcohol and illegal drug use. Tobacco use was reported as 1 pack per day. She did acknowledge history of taking more benzodiazepines than was prescribed to her about a year and a half ago. She states she went through withdrawal with a terrible experience and she is fearful that this will happen again. PAST MEDICAL HISTORY: Anxiety, arthritis, vitamin B12 deficiency, benzodiazepine dependence, benzodiazepine withdrawal, chronic pain, COPD, depression, seasonal and environmental allergies, folic acid deficiency, GERD, hiatal hernia, hyperlipidemia, hypertension, hyperglycemia, insomnia, lactic acidosis, otalgia right ear, panic attacks, vertigo, vitamin D deficiency. MEDICATIONS: Toprol-XL, Pepcid, Celexa, Tylenol, Pulmicort Respules, Tums, Zofran, Benadryl, Valium and Ambien. MENTAL STATUS EXAMINATION: The patient was lying in bed, crying. She is awake, alert and oriented to person, place and time. Mood was anxious and depressed. She firmly denied suicidal and homicidal ideation, plan and intent. She expressed her concern that she will experience withdrawal from not having access to any more Valium since throwing it all away. She is not due for a refill until 01/20. She receives counseling, case management and psychiatric services through [facility]. Speech and language were within normal limits conversationally. Thought process was goal directed and focused on her fear of physical pain from withdrawal. She did not appear to be responding to internal stimuli. She declined inpatient psychiatric treatment. DIAGNOSIS: Unspecified anxiety disorder; major depressive disorder, recurrent, unspecified. PLAN: The patient does not appear to be an imminent risk to herself or others and does not appear to require inpatient psychiatric treatment. I consulted with Dr. Farias. He suggested using Ativan 1 mg p.o. q.6 hours p.r.n. while she is hospitalized, but stated he would not give her a script of this to leave the hospital with. He also suggested running an OARRS report if this has not already been done. She appears appropriate for discharge from a psychological standpoint and would benefit from continuing to follow with her outpatient mental health providers. Thank you very much for this consult. [place], [place] REPORT OF CONSULTATION NAME: KAYE MARTINEZ UNIT #: [id number] ROOM: [facility] DOCTOR: MARCIAL, PHD YANE BIRTHDATE: [birth year] Joanna Crespo, PhD CM:CONSTR:REPORT OF CONSULTATION 1247 01/10/19 0736 interface
--- NOTE | ~2019-01-03 | WRIGHTHP ---
[place], [place] PATIENT HISTORY AND PHYSICAL EXAM NAME: KAYE MARTINEZ UNIT #: [id number] ROOM: [facility] DOCTOR: PEGGY TRACY MD BIRTHDATE: [birth year] DOS: 01/03/2019 HISTORY AND PHYSICAL AND COMBINED DISCHARGE SUMMARY DISCHARGE DIAGNOSES: 1. Salicylate poisoning. 2. Mixed hyperlipidemia. 3. Benign essential hypertension. 4. Gastroesophageal reflux disease and esophagitis. 5. Generalized anxiety disorder. 6. Benzodiazepine dependence. 7. Moderate protein-calorie malnutrition. HOSPITAL COURSE: The patient presented to the Emergency Department after taking 5 packets of aspirin, Tylenol combination powder, which she took for headaches at home and came in with some complaints of headache, significant anxiety and because she had thrown away her Valium prescribed to her by the psychiatrist. The patient's salicylate levels were found to be high and Poison Control was called. The patient was treated with bicarbonate, potassium, and hydration with IV fluids. Salicylate levels were repeated and finally the patient has been cleared by Poison Control that she required no more testing and she has been cleared for discharge. The patient is very anxious that she threw away her Valium, but she had not taken it for 4-5 days prior to coming to the hospital and she received one dose here. I am consulting Psychiatry to decide about her further treatment and what she should be taking at home. The patient was reassured. Major depression, recurrent, mild, treated and controlled with citalopram, which was continued. Gastroesophageal reflux disease and esophagitis. The patient takes Pepcid. Benign essential hypertension, treated and controlled with metoprolol. REVIEW OF SYSTEMS: RESPIRATORY: No increasing shortness of breath. GASTROINTESTINAL: Some abdominal pains and acid reflux, heartburn symptoms, which are chronic for the patient. RESPIRATORY: No increasing shortness of breath or wheezing. CARDIOVASCULAR: No chest pains or palpitations. ALLERGIES: Known allergies to PENICILLIN, CODEINE, HYDROCODONE, CEPHALEXIN AND BUSPIRONE. FAMILY HISTORY: Noncontributory. PHYSICAL EXAMINATION: GENERAL: Alert, oriented x 3, looking anxious, otherwise in no visible distress. [place], [place] PATIENT HISTORY AND PHYSICAL EXAM NAME: KAYE MARTINEZ UNIT #: [id number] ROOM: [facility] DOCTOR: PEGGY TRACY MD BIRTHDATE: [birth year] VITAL SIGNS: Blood pressure 94/56, heart rate of 75 beats per minute, breathing 16 times per minute, temperature 98.9 degrees Fahrenheit. HEENT AND NECK: Extraocular movements are intact. Sclerae are anicteric. Oral mucosa is moist and clean. No obvious facial weakness. Neck is supple without any lymphadenopathy. No thyromegaly. No JVD. No carotid arterial bruits. LUNGS: Clear to auscultation. No wheezing. No rhonchi. CARDIOVASCULAR SYSTEM: Heart rate is regular in rate and rhythm. S1 and S2 normally audible. No significant murmur or any other abnormal cardiac sounds. ABDOMEN: Soft, nontender. No obvious organomegaly. Bowel sounds are present. No obvious herniation. EXTREMITIES: Without significant cyanosis or edema. Warm to touch. CENTRAL NERVOUS SYSTEM: Alert and oriented x 3. Cranial nerves II-XII are intact. Speech is normal. The patient is able to move all extremities. Normal muscle strength. Deep tendon reflexes are equal on both sides. Plantars were downgoing. IMPRESSION: 1. The patient with generalized anxiety disorder, appears very anxious. I am consulting psych to treat her and clear her for discharge today or she can be taken to [facility]. 2. Salicylate poisoning accidental because she was having headaches and took five packets of Tylenol mixed with aspirin powder. The patient's salicylate levels were performed and they are reducing and she has been cleared by Poison Control. The patient was treated on Poison Control recommendation of hydration with bicarbonate and potassium supplements. 3. Chronic gastroesophageal reflux disease and esophagitis, treated with Pepcid, which was continued. 4. Benign essential hypertension. Blood pressure was monitored and the patient continued on metformin. 5. Generalized anxiety disorder for which she was taking diazepam at home one 5 mg tablet a day, which she was given today. She had not taken it for 5 days and the patient is very anxious about her psych medications. Psych consult has been obtained to see her before she is discharged to home today. 6. Major depression, recurrent, mild, treated and controlled with citalopram, which was continued. LABORATORY DATA: Normal CBC, normal serum electrolytes, BUN and creatinine, potassium level of 3.3 for which she was given extra 40 mEq of potassium chloride today. DISCHARGE MANAGEMENT: Metoprolol 25 mg daily, Pepcid 40 mg a day, citalopram 40 mg a day, diazepam as prescribed by psychiatrist. Follow up with PCP and psychiatrist within a week after discharge. To be discharged today after cleared by Psychiatry. [place], [place] PATIENT HISTORY AND PHYSICAL EXAM NAME: KAYE MARTINEZ UNIT #: [id number] ROOM: [facility] DOCTOR: PEGGY TRACY MD BIRTHDATE: [birth year] PEGGY TRACY MD CM:HISPHYS:PATIENT HISTORY AND PHYSICAL EXAMINATION [id number] PEGGY TRACY MD 01/04/19 1129 interface
--- NOTE | ~2019-01-03 | EKG ---
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
[2019-01-03 15:09] VITALS: BP 111/83
[2019-01-03 16:17] LABS: BASO # 0.1 10*3/uL (0.0-0.1); BASO % 0.6 % (0.0-1.0); EOS # 0.1 10*3/uL (0.0-0.4); HEMATOCRIT 48.1 % (37.0-47.0); HEMOGLOBIN 15.7 g/dl (12.0-16.0); LYMPH # 2.6 10*3/uL (1.3-4.4); LYMPH % 21.2 % (27.0-41.0); MEAN CELL VOLUME 94.1 fl (81.0-99.0); MEAN CORPUSCULAR HGB 30.7 pg (27.0-31.0); MEAN CORPUSCULAR HGB CONC 32.6 g/dl (33.0-37.0); MEAN PLATELET VOLUME 9.9 fl (9.6-12.3); MONO # 0.8 10*3/uL (0.1-1.0); MONO % 6.5 % (3.0-9.0); NEUT # 8.5 10*3/uL (2.3-7.9); NEUT % 70.4 % (47.0-73.0); PLATELET COUNT AUTOMATED 333 10*3/uL (130-400); RED BLOOD COUNT 5.11 10*6/uL (4.10-5.10); RED CELL DISTRI WIDTH 13.2 % (0-14.5); WHITE BLOOD COUNT 12.1 10*3/uL (4.8-10.8)
[2019-01-03 16:34] LABS: BILIRUBIN NEGATIVE (NEGATIVE); BLOOD NEGATIVE (NEGATIVE); CLARITY SL CLOUDY (CLEAR); COLOR YELLOW (YELLOW); GLUCOSE NEGATIVE (NEGATIVE); KETONE NEGATIVE (NEGATIVE); LEUKO ESTERASE NEGATIVE (NEGATIVE); NITRITE NEGATIVE (NEGATIVE); SPECIFIC GRAVITY <= 1.005 (1.005-1.030); UROBILINOGEN 0.2 E.U./dl (0.2-1.0)
[2019-01-03 16:34] LABS: ACETAMINOPHEN (TYLENOL) < 5.0 ug/ml (10-30); ALBUMIN 3.7 gm/dl (3.1-4.5); ALKALINE PHOSPHATASE 87 U/L (45-117); BUN 6 mg/dl (7-24); CHLORIDE 113 mmol/L (98-107); CREATININE 0.79 mg/dL (0.55-1.02); ETHYL ALCOHOL < 3.0 mg/dl (<3); POTASSIUM 3.8 mmol/L (3.5-5.1); SGOT/AST 16 IU/L (3-35); SGPT/ALT 11 U/L (12-78); SODIUM 140 mmol/L (136-145); TOTAL PROTEIN 7.2 gm/dL (6.4-8.2); TROPONIN I < 0.015 ng/ml (<0.045)
--- NOTE | 2019-01-03 16:36 | NUR ---
PT IN ROOM AT THIS TIME ON THE PHONE. NO VOICED COMPLAINTS. CALL LIGHT WIEDYIN AUDI, WILL CONTINUE TO MONITOR.
[2019-01-03 16:43] LABS: URINE AMPHETAMINES < 1000 (1000ng/ml); URINE BARBITURATES < 200 (200ng/ml); URINE BENZODIAZEPINES > 200 (200ng/ml); URINE CANNABINOIDS (THC) < 50 (50ng/ml); URINE COCAINE < 300 (300ng/ml); URINE METHADONE < 300 (300ng/ml); URINE OPIATES < 300 (300ng/ml)
[2019-01-03 16:49] LABS: BACTERIA TRACE; WBC 0-2 wbc/hpf (0-5)
[2019-01-03 16:50] LABS: URINE PHENCYCLIDINE < 25 (25ng/ml)
--- NOTE | 2019-01-03 17:21 | NUR ---
POISON CONTROL HAS BEEN CONTACTED.
[2019-01-03 17:52] LABS: VENOUS BLOOD GAS O2 SAT 73.7 % (40-85); VENOUS PH 7.48 (7.32-7.43)
--- NOTE | 2019-01-03 18:01 | NUR ---
POISON CONTROL WAS AGAIN CONTACTED REGARDING PT SALYCILATE LEVEL. POISON CONTROL RECOMMENDS GIVING THE PT 3AMPS OF SODIUM BICARB IN 1L OF D5W WITH POTASSIUM, WELL Q2HR pH AND K+ LEVELS.
--- NOTE | 2019-01-03 18:05 | NUR ---
PHARMACY WAS CONTACTED REGARDING CORRECT DOSAGE OF MEDICATIONS.
--- NOTE | 2019-01-03 18:31 | NUR ---
POISON CONTROL RECOMMENDS 1/2 X MAINTANCE LEVEL OF MEDICATIONS WHICH WOULD BE 150ML/HR.
[2019-01-03 18:49] VITALS: BP 104/64
[2019-01-03 19:12] VITALS: BP 94/60
--- NOTE | 2019-01-03 19:12 | NUR ---
A 48 YEAR OLD FEMALE admitted to ICCU, under the services of Dr. ROSSANA CASTREJON,PEGGY Arias with a diagnosis of SALICYLATE POISONING. Chief complaint is ANXIETY. Patient arrived via stretcher from ER. Monitor applied. Initial assessment completed. Vital signs taken and recorded. DR. ROSSANA CASTREJON,PEGGY Arias notified of admission to the unit. Orders received. See assessment for past medical history, medications and allergies. Patient and/or family oriented to unit. [facility] visitation policy reviewed. Clothing/patient valuable form completed. DAXA CAMARGO
[2019-01-03] MEDS ORDERED: VALIUM5 MG PO (19:46)
[2019-01-03] MEDS ORDERED: FLOVENT HFA12 G1 INH (19:48)
[2019-01-03] MEDS ORDERED: MYLANTA MAXIMU355 M1 PO (19:49)
--- NOTE | 2019-01-03 20:30 | NUR ---
SPOKE WITH HERRERA, FROM POISON CONTROL, RECOMMENDATIONS CLARIFIED/CONVEYED TO DR TRACY AND ORDERED. ALSO MAINTENANCE RATE DISCUSSED WITH BOTH PHARMACIST CANDACE AND DR TRACY. STAT LABS ORDERED AND DRAWN.
--- NOTE | 2019-01-03 21:49 | NUR ---
POISON CONTROL CALLS TO CHECK ON PT AND LAB RESULTS.
[2019-01-04] VITALS: BP 97/51
--- NOTE | 2019-01-04 00:02 | NUR ---
I SPOKE WITH HERRERA FROM POISON CONTROL. VS, LABS FROM 2229 RELAYED TO HIM. HE STATES NO FURTHER ASA LEVELS NEEDED TWO DECLINING LEVELS REPORTED. HE ALSO RECOMMENDS TO DC BICARB GTT. IV GTT DC'D ORDERED BY DR TRACY.
--- NOTE | 2019-01-04 00:04 | NUR ---
ALSO, POISON CONTROL SIGNED OFF OF THE CASE.
[2019-01-04 04:00] VITALS: BP 94/56
[2019-01-04 05:05] LABS: BASO # 0.1 10*3/uL (0.0-0.1); BASO % 0.6 % (0.0-1.0); EOS # 0.2 10*3/uL (0.0-0.4); EOS % 2.9 % (1.0-4.0); HEMOGLOBIN 14.2 g/dl (12.0-16.0); LYMPH # 2.5 10*3/uL (1.3-4.4); LYMPH % 30.1 % (27.0-41.0); MEAN CELL VOLUME 94.2 fl (81.0-99.0); MEAN CORPUSCULAR HGB 30.4 pg (27.0-31.0); MEAN CORPUSCULAR HGB CONC 32.3 g/dl (33.0-37.0); MEAN PLATELET VOLUME 9.8 fl (9.6-12.3); MONO # 0.9 10*3/uL (0.1-1.0); NEUT # 4.6 10*3/uL (2.3-7.9); PLATELET COUNT AUTOMATED 298 10*3/uL (130-400); RED BLOOD COUNT 4.67 10*6/uL (4.10-5.10); RED CELL DISTRI WIDTH 13.3 % (0-14.5); WHITE BLOOD COUNT 8.4 10*3/uL (4.8-10.8)
[2019-01-04 05:18] LABS: BUN 7 mg/dl (7-24); CHLORIDE 109 mmol/L (98-107); CREATININE 0.73 mg/dL (0.55-1.02); POTASSIUM 3.3 mmol/L (3.5-5.1); SODIUM 143 mmol/L (136-145)
--- NOTE | 2019-01-04 07:58 | NUR ---
DR TRACY UPDATED ON PT'S AM LAB RESULTS. NEW ORDERS RECEIVED.
[2019-01-04 08:00] VITALS: BP 102/59
--- NOTE | 2019-01-04 08:25 | NUR ---
MEDICATED PT PER PRN ORDER WITH TYLENOL FOR C/O QUEEN. ALSO 40MEQ KDUR GIVEN TO PT PER 1 TIME ORDER FOR POTASSIUM LEVEL OF 3.3. PT CRYING AND VERY ANXIOUS AND UPSET BECAUSE SHE IS VERY WORRIED OF GOING THROUGH WITHDRAWL FROM HER VALIUM. PT STATES 3 DAYS AGO SHE WAS YELLED AT BY HER COUNSELOR BECAUSE SHE WAS TAKING VALIUM EVEN THOUGH IT WAS PRESCIBED BY THE DOCTOR. PT WAS VERY UPSET AND SHE STATES SHE THREW HER VALIUM AWAY THAT WAS FILLED ON 12/23/18. NOW SHE IS AFRAID TO GO HOME AND GO THROUGH WITHDRAWL FROM VALIUM BECAUSE SHE HAS NO PILLS LEFT BECAUSE SHE THREW THEM AWAY. WILL UPDATE DR TRACY.
--- NOTE | 2019-01-04 09:00 | NUR ---
DR TRACY IN TO SEE PT. HE IS GOING TO ORDER DISCHARGE FOR PT AFTER SHE IS CLEARED BY PSYCH.
--- NOTE | 2019-01-04 09:15 | NUR ---
CLARIFIED DR BEAULIEU CONSULT WITH DR TRACY. DR TRACY STATED IT DID NOT HAVE TO BE DR BEAULIEU IT COULD BE ANYONE FROM [facility]. WHO CAN CLEAR PT FOR DISCHARGE.
--- NOTE | 2019-01-04 09:20 | NUR ---
PT STATES RELEIF OF EARLIER QUEEN.
--- NOTE | 2019-01-04 11:22 | NUR ---
DR HIDALGO IN TO SEE PT. DEEMED THAT PT IS NOT SUICIDAL AND IS ABLE TO BE DISCHARGED TO HOME TO FOLLOW UP WITH COUNSELORS. DR HIDALGO DID SPEAK WITH DR BEAULIEU R/T PT'S CASE AND HE STATED PT CULD BE GIVEN ATIVAN 1MG Q6H WHILE SHE IS INPT IF DR TRACY WANTS TO ORDER IT FOR PT'S INCREASED ANXIETY. WHEN DR TRACY WAS UPDATED HE DID NOT ORDER THE ATIVAN. HE STATED PT IS TO FOLLOW UP WITH COUNSELORS AND HER PRIMARY DOCTOR OUTPT.
[2019-01-04 12:00] VITALS: BP 106/62
--- NOTE | 2019-01-04 12:40 | NUR ---
PT EDUCATED ON ONLY TAKING OTC MEDS AND MEDS ORDER BY VANIA ONLY ORDERED. PT ALSO SHOWN HELP HOTLINE NUMBER ON DISCHARGE PAPERS IF SHE WOULD HAVE ANY INCREASED ANXIETY OR SUICIDAL THOUGHTS AND TO COME BACK TO ER IF ANY OF THESE OCCUR.
--- NOTE | 2019-01-04 12:48 | NUR ---
Discharge instructions reviewed with patient/family. Patient receptive and verbalizes understanding. Follow-up care arranged. Written instructions given to patient/family. LILLIAN GONZALES
== END 2019-01-04 12:48 | disposition home or self-care (01) | DRG 812 ==
LOC: ED 15:04 → ICCU 17:43 → EDHOLD 17:43 → ICCU 18:42
PROVIDERS: Physician Assistant; ADMIT Internal Medicine
DX: T39.011A Poisoning by aspirin, accidental (unintentional), initial encounter (principal); E44.0 Moderate protein-calorie malnutrition; F33.0 Major depressive disorder, recurrent, mild; F41.1 Generalized anxiety disorder; I10 Essential (primary) hypertension; E78.2 Mixed hyperlipidemia; M19.90 Unspecified osteoarthritis, unspecified site; G89.29 Other chronic pain; J44.9 Chronic obstructive pulmonary disease, unspecified; K21.0 Gastro-esophageal reflux disease with esophagitis; F13.20 Sedative, hypnotic or anxiolytic dependence, uncomplicated; F17.210 Nicotine dependence, cigarettes, uncomplicated; Y92.89 Other specified places as the place of occurrence of the external cause; Z88.0 Allergy status to penicillin; Z88.8 Allergy status to other drugs, medicaments and biological substances; Z88.5 Allergy status to narcotic agent; Z98.51 Tubal ligation status; Z82.3 Family history of stroke; Z81.8 Family history of other mental and behavioral disorders; Z68.28 Body mass index [BMI] 28.0-28.9, adult

== ENCOUNTER 2019-01-06 06:01 | Emergency (ER) | payer OTHER ==
[~2019-01-06] VITALS: Ht 152.4 cm; Wt 81.6 kg
[~2019-01-06 06:01] MED LIST changes: +FLOVENT HFA12 G1 INH; +MYLANTA MAXIMU355 M1 PO
[2019-01-06 06:59] LABS: BASO # 0.1 10*3/uL (0.0-0.1); BASO % 0.7 % (0.0-1.0); EOS # 0.2 10*3/uL (0.0-0.4); EOS % 2.2 % (1.0-4.0); HEMATOCRIT 45.7 % (37.0-47.0); LYMPH # 2.5 10*3/uL (1.3-4.4); LYMPH % 27.2 % (27.0-41.0); MEAN CELL VOLUME 93.3 fl (81.0-99.0); MEAN CORPUSCULAR HGB 30.6 pg (27.0-31.0); MEAN CORPUSCULAR HGB CONC 32.8 g/dl (33.0-37.0); MONO # 0.9 10*3/uL (0.1-1.0); MONO % 9.9 % (3.0-9.0); NEUT # 5.4 10*3/uL (2.3-7.9); NEUT % 59.7 % (47.0-73.0); PLATELET COUNT AUTOMATED 299 10*3/uL (130-400); RED CELL DISTRI WIDTH 13.2 % (0-14.5); WHITE BLOOD COUNT 9.1 10*3/uL (4.8-10.8)
[2019-01-06 07:15] LABS: ALBUMIN 3.5 gm/dl (3.1-4.5); ALKALINE PHOSPHATASE 82 U/L (45-117); BUN 12 mg/dl (7-24); CHLORIDE 107 mmol/L (98-107); CREATININE 0.89 mg/dL (0.55-1.02); POTASSIUM 3.4 mmol/L (3.5-5.1); SGOT/AST 14 IU/L (3-35); SGPT/ALT 14 U/L (12-78); SODIUM 138 mmol/L (136-145); TOTAL PROTEIN 6.9 gm/dL (6.4-8.2)
[2019-01-06 07:29] LABS: BILIRUBIN NEGATIVE (NEGATIVE); BLOOD NEGATIVE (NEGATIVE); CLARITY CLEAR (CLEAR); COLOR YELLOW (YELLOW); GLUCOSE NEGATIVE (NEGATIVE); KETONE NEGATIVE (NEGATIVE); LEUKO ESTERASE TRACE (NEGATIVE); NITRITE NEGATIVE (NEGATIVE); UROBILINOGEN 0.2 E.U./dl (0.2-1.0)
[2019-01-06 07:35] LABS: ACETAMINOPHEN (TYLENOL) < 5.0 ug/ml (10-30); ETHYL ALCOHOL < 3.0 mg/dl (<3)
[2019-01-06 07:39] LABS: URINE AMPHETAMINES < 1000 (1000ng/ml); URINE BARBITURATES < 200 (200ng/ml); URINE BENZODIAZEPINES > 200 (200ng/ml); URINE CANNABINOIDS (THC) < 50 (50ng/ml); URINE COCAINE < 300 (300ng/ml); URINE METHADONE < 300 (300ng/ml); URINE OPIATES < 300 (300ng/ml); URINE PHENCYCLIDINE < 25 (25ng/ml)
[2019-01-06 07:42] LABS: BACTERIA 1+
== END 2019-01-06 10:11 | disposition home or self-care (01) ==
LOC: ED 06:01
PROVIDERS: Emergency Medicine
DX: F15.93 Other stimulant use, unspecified with withdrawal (principal); F41.9 Anxiety disorder, unspecified; G89.29 Other chronic pain; J44.9 Chronic obstructive pulmonary disease, unspecified; K21.9 Gastro-esophageal reflux disease without esophagitis; E78.5 Hyperlipidemia, unspecified; I10 Essential (primary) hypertension; L40.9 Psoriasis, unspecified; F41.0 Panic disorder [episodic paroxysmal anxiety]; F17.200 Nicotine dependence, unspecified, uncomplicated; Z88.0 Allergy status to penicillin; Z88.1 Allergy status to other antibiotic agents; Z88.5 Allergy status to narcotic agent; Z88.6 Allergy status to analgesic agent; Z79.899 Other long term (current) drug therapy

== ENCOUNTER 2019-02-15 20:35 | Emergency (ER) | payer OTHER ==
[~2019-02-15] VITALS: Ht 152.4 cm; Wt 64.9 kg
[2019-02-15 21:32] LABS: BASO # 0.1 10*3/uL (0.0-0.1); BASO % 0.7 % (0.0-1.0); EOS # 0.2 10*3/uL (0.0-0.4); EOS % 1.8 % (1.0-4.0); HEMATOCRIT 47.3 % (37.0-47.0); HEMOGLOBIN 15.5 g/dl (12.0-16.0); LYMPH # 2.8 10*3/uL (1.3-4.4); MEAN CELL VOLUME 92.6 fl (81.0-99.0); MEAN CORPUSCULAR HGB 30.3 pg (27.0-31.0); MEAN CORPUSCULAR HGB CONC 32.8 g/dl (33.0-37.0); MEAN PLATELET VOLUME 10.4 fl (9.6-12.3); MONO # 0.9 10*3/uL (0.1-1.0); MONO % 7.7 % (3.0-9.0); NEUT # 8.1 10*3/uL (2.3-7.9); NEUT % 66.5 % (47.0-73.0); PLATELET COUNT AUTOMATED 328 10*3/uL (130-400); RED BLOOD COUNT 5.11 10*6/uL (4.10-5.10); RED CELL DISTRI WIDTH 13.3 % (0-14.5); WHITE BLOOD COUNT 12.2 10*3/uL (4.8-10.8)
[2019-02-15 21:48] LABS: ALBUMIN 3.8 gm/dl (3.1-4.5); ALKALINE PHOSPHATASE 95 U/L (45-117); BUN 6 mg/dl (7-24); CHLORIDE 110 mmol/L (98-107); CREATININE 0.63 mg/dL (0.55-1.02); POTASSIUM 3.7 mmol/L (3.5-5.1); SGOT/AST 9 IU/L (3-35); SGPT/ALT 14 U/L (12-78); SODIUM 140 mmol/L (136-145); TOTAL PROTEIN 7.2 gm/dL (6.4-8.2)
[2019-02-16] MEDS ORDERED: CLINDAMYCIN HC300 MG PO (00:35)
[2019-02-16] MEDS ORDERED: PREDNISONE10 M1 PO (00:35)
== END 2019-02-16 00:53 | disposition left against medical advice (07) ==
LOC: ED 20:35
PROVIDERS: Emergency Medicine
DX: J44.9 Chronic obstructive pulmonary disease, unspecified (principal); H61.032 Chondritis of left external ear; L40.9 Psoriasis, unspecified; G89.29 Other chronic pain; K21.9 Gastro-esophageal reflux disease without esophagitis; E78.5 Hyperlipidemia, unspecified; I10 Essential (primary) hypertension; F17.200 Nicotine dependence, unspecified, uncomplicated; Z88.0 Allergy status to penicillin; Z88.1 Allergy status to other antibiotic agents; Z88.5 Allergy status to narcotic agent; Z88.6 Allergy status to analgesic agent; Z88.8 Allergy status to other drugs, medicaments and biological substances; Z79.899 Other long term (current) drug therapy

== ENCOUNTER 2019-09-16 01:50 | Emergency (ER) | payer OTHER ==
[~2019-09-16] VITALS: Ht 152.4 cm; Wt 69.6 kg
[~2019-09-16 01:50] MED LIST changes: +PREDNISONE10 M1 PO
[2019-09-16 02:23] LABS: BASO # 0.1 10*3/uL (0.0-0.1); BASO % 0.5 % (0.0-1.0); EOS # 0.3 10*3/uL (0.0-0.4); EOS % 3.1 % (1.0-4.0); HEMATOCRIT 45.3 % (37.0-47.0); LYMPH # 3.3 10*3/uL (1.3-4.4); LYMPH % 34.4 % (27.0-41.0); MEAN CELL VOLUME 91.3 fl (81.0-99.0); MEAN CORPUSCULAR HGB CONC 32.9 g/dl (33.0-37.0); MONO % 10.3 % (3.0-9.0); NEUT % 51.4 % (47.0-73.0); PLATELET COUNT AUTOMATED 358 10*3/uL (130-400); RED BLOOD COUNT 4.96 10*6/uL (4.10-5.10); RED CELL DISTRI WIDTH 14.6 % (0-14.5); WHITE BLOOD COUNT 9.7 10*3/uL (4.8-10.8)
[2019-09-16 02:35] LABS: ACT PARTIAL THROMBO TIME 24.7 SECONDS (20.0-32.1); INTERNATIONAL NORM RATIO 0.9 (2.0-3.5)
[2019-09-16 02:39] LABS: ALBUMIN 3.7 gm/dl (3.1-4.5); ALKALINE PHOSPHATASE 85 U/L (45-117); BUN 7 mg/dl (7-24); CHLORIDE 108 mmol/L (98-107); CREATININE 0.68 mg/dL (0.55-1.02); LIPASE 96 U/L (73-393); POTASSIUM 3.4 mmol/L (3.5-5.1); SGOT/AST 10 IU/L (3-35); SGPT/ALT 14 U/L (12-78); SODIUM 138 mmol/L (136-145)
[2019-09-16 02:40] LABS: TROPONIN I < 0.015 ng/ml (<0.045)
== END 2019-09-16 06:29 | disposition home or self-care (01) ==
LOC: ED 01:50
PROVIDERS: Emergency Medicine Emergency Medical Services
DX: F41.1 Generalized anxiety disorder (principal); F43.0 Acute stress reaction; J44.9 Chronic obstructive pulmonary disease, unspecified; E78.5 Hyperlipidemia, unspecified; I10 Essential (primary) hypertension; K21.9 Gastro-esophageal reflux disease without esophagitis; M19.90 Unspecified osteoarthritis, unspecified site; F17.200 Nicotine dependence, unspecified, uncomplicated; Z88.6 Allergy status to analgesic agent; Z88.0 Allergy status to penicillin; Z88.1 Allergy status to other antibiotic agents; Z88.8 Allergy status to other drugs, medicaments and biological substances; Z79.899 Other long term (current) drug therapy

== ENCOUNTER 2019-11-18 09:52 | Emergency (ER) | payer OTHER ==
[~2019-11-18] VITALS: Ht 152.4 cm; Wt 65.8 kg
[2019-11-18] MEDS ORDERED: ZITHROMAX250 MG PO (11:08)
[2019-11-18] MEDS ORDERED: PREDNISONE50 MG PO (11:08)
== END 2019-11-18 11:19 | disposition home or self-care (01) ==
LOC: ED 09:52
DX: J20.9 Acute bronchitis, unspecified (principal); K21.9 Gastro-esophageal reflux disease without esophagitis; F41.9 Anxiety disorder, unspecified; F32.9 Major depressive disorder, single episode, unspecified; Z88.0 Allergy status to penicillin; Z88.5 Allergy status to narcotic agent; Z88.8 Allergy status to other drugs, medicaments and biological substances; Z79.899 Other long term (current) drug therapy; Z20.828 Contact with and (suspected) exposure to other viral communicable diseases

== ENCOUNTER 2020-11-01 16:02 | Emergency (ER) | payer OTHER ==
[~2020-11-01] VITALS: Ht 152.4 cm; Wt 64.9 kg
[2020-11-01 17:36] LABS: BASO % 0.4 % (0.0-1.0); EOS # 0.3 10*3/uL (0.0-0.4); EOS % 2.5 % (1.0-4.0); HEMATOCRIT 44.9 % (37.0-47.0); LYMPH # 2.5 10*3/uL (1.3-4.4); LYMPH % 24.5 % (27.0-41.0); MEAN CELL VOLUME 91.3 fl (81.0-99.0); MEAN CORPUSCULAR HGB 29.7 pg (27.0-31.0); MEAN CORPUSCULAR HGB CONC 32.5 g/dl (33.0-37.0); MEAN PLATELET VOLUME 10.1 fl (9.6-12.3); MONO # 0.7 10*3/uL (0.1-1.0); MONO % 6.6 % (3.0-9.0); NEUT # 6.6 10*3/uL (2.3-7.9); NEUT % 65.7 % (47.0-73.0); PLATELET COUNT AUTOMATED 332 10*3/uL (130-400); RED BLOOD COUNT 4.92 10*6/uL (4.10-5.10); RED CELL DISTRI WIDTH 13.8 % (0-14.5); WHITE BLOOD COUNT 10.1 10*3/uL (4.8-10.8)
[2020-11-01 17:52] LABS: ALBUMIN 3.5 gm/dl (3.1-4.5); ALKALINE PHOSPHATASE 94 U/L (45-117); BUN 9 mg/dl (7-24); CHLORIDE 107 mmol/L (98-107); CREATININE 0.62 mg/dL (0.55-1.02); LIPASE 97 U/L (73-393); POTASSIUM 3.9 mmol/L (3.5-5.1); SGOT/AST 14 IU/L (3-35); SGPT/ALT 17 U/L (12-78); SODIUM 139 mmol/L (136-145); TOTAL PROTEIN 7.2 gm/dL (6.4-8.2); TROPONIN I < 0.015 ng/ml (<0.045)
[2020-11-01 18:03] LABS: ACT PARTIAL THROMBO TIME 26.2 SECONDS (20.0-32.1); INTERNATIONAL NORM RATIO 0.9 (2.0-3.5)
[2020-11-01 20:37] LABS: BILIRUBIN Negative (Negative); BLOOD Negative (Negative); CLARITY Clear (Clear); COLOR Yellow (Yellow); GLUCOSE Negative (Negative); KETONE Negative (Negative); LEUKO ESTERASE Negative (Negative); NITRITE Negative (Negative); SPECIFIC GRAVITY >= 1.030 (1.001-1.030)
[2020-11-01 20:44] LABS: RBC 0-2 rbc/hpf (0-2); WBC 0-2 wbc/hpf (0-5)
[2020-11-01] MEDS ORDERED: IBUPROFEN600 MG PO (21:46)
== END 2020-11-01 22:11 | disposition home or self-care (01) ==
LOC: ED 16:02
PROVIDERS: Physician Assistant
DX: S29.011A Strain of muscle and tendon of front wall of thorax, initial encounter (principal); F17.200 Nicotine dependence, unspecified, uncomplicated; Z88.1 Allergy status to other antibiotic agents; Z88.6 Allergy status to analgesic agent; Z79.899 Other long term (current) drug therapy; W50.0XXA Accidental hit or strike by another person, initial encounter; Y93.89 Activity, other specified; Y92.89 Other specified places as the place of occurrence of the external cause; Y99.8 Other external cause status

== ENCOUNTER 2021-08-16 16:31 | Emergency (ER) | payer OTHER ==
[~2021-08-16] VITALS: Ht 152.4 cm; Wt 68.0 kg
[~2021-08-16 16:31] MED LIST changes: +IBUPROFEN600 MG PO
[2021-08-16] MEDS ORDERED: CYCLOBENZAPRINE5 M3 PO (18:54)
[2021-08-16] MEDS ORDERED: PREDNISONE50 MG PO (18:54)
== END 2021-08-16 19:17 | disposition home or self-care (01) ==
LOC: ED 16:31
DX: S29.011A Strain of muscle and tendon of front wall of thorax, initial encounter (principal); Z88.1 Allergy status to other antibiotic agents; Z88.8 Allergy status to other drugs, medicaments and biological substances; Z79.899 Other long term (current) drug therapy; Z98.51 Tubal ligation status; Z90.89 Acquired absence of other organs; F17.200 Nicotine dependence, unspecified, uncomplicated; X58.XXXA Exposure to other specified factors, initial encounter; Y93.89 Activity, other specified; Y92.89 Other specified places as the place of occurrence of the external cause; Y99.8 Other external cause status

== ENCOUNTER 2021-08-22 21:08 | Emergency (ER) | payer OTHER ==
[~2021-08-22] VITALS: Ht 162.5 cm; Wt 71.8 kg
[~2021-08-22 21:08] MED LIST changes: +CYCLOBENZAPRINE5 M3 PO
[2021-08-22] MEDS ORDERED: LEVOFLOXACIN500 MG PO (21:16)
[2021-08-22] MEDS ORDERED: LAMOTRIGINE25 M1 PO (21:17)
[2021-08-22 21:22] LABS: HEMATOCRIT 46.8 % (37.0-47.0); MEAN CELL VOLUME 87.5 fl (81.0-99.0); MEAN CORPUSCULAR HGB 29.3 pg (27.0-31.0); MEAN CORPUSCULAR HGB CONC 33.5 g/dl (33.0-37.0); MEAN PLATELET VOLUME 9.6 fl (9.6-12.3); PLATELET COUNT AUTOMATED 333 10*3/uL (130-400); RED BLOOD COUNT 5.35 10*6/uL (4.10-5.10); RED CELL DISTRI WIDTH 13.1 % (0-14.5); WHITE BLOOD COUNT 11.4 10*3/uL (4.8-10.8)
[2021-08-22 21:23] LABS: MANUAL DIFF REFLEX YES
[2021-08-22 21:33] LABS: ACT PARTIAL THROMBO TIME 23.3 SECONDS (20.0-32.1); INTERNATIONAL NORM RATIO 0.9 (2.0-3.5)
[2021-08-22 21:39] LABS: ALKALINE PHOSPHATASE 78 U/L (45-117); BUN 12 mg/dl (7-24); CHLORIDE 107 mmol/L (98-107); CREATININE 0.77 mg/dL (0.55-1.02); POTASSIUM 3.6 mmol/L (3.5-5.1); SGOT/AST 10 IU/L (3-35); SGPT/ALT 18 U/L (12-78); SODIUM 137 mmol/L (136-145); TOTAL PROTEIN 7.1 gm/dL (6.4-8.2)
[2021-08-22 21:52] LABS: PLATELET SUFFICIENCY NORMAL (NORMAL); TOTAL CELLS COUNTED 100 #CELLS
== END 2021-08-22 23:50 | disposition home or self-care (01) ==
LOC: ED 21:08
PROVIDERS: Internal Medicine
DX: R07.9 Chest pain, unspecified (principal); K21.9 Gastro-esophageal reflux disease without esophagitis; F41.9 Anxiety disorder, unspecified; Z88.1 Allergy status to other antibiotic agents; Z88.8 Allergy status to other drugs, medicaments and biological substances; Z79.899 Other long term (current) drug therapy; Z98.51 Tubal ligation status; Z90.89 Acquired absence of other organs; Z87.891 Personal history of nicotine dependence

== ENCOUNTER 2022-07-11 03:00 | Emergency (ER) | payer OTHER ==
[~2022-07-11] VITALS: Ht 157.4 cm; Wt 63.5 kg
[~2022-07-11 03:00] MED LIST changes: -CELEXA20 MG PO; +LAMOTRIGINE25 M1 PO; +LEVOFLOXACIN500 MG PO; +NICODERM CQ1 EAC2 T; +PREDNISONE5 MG PO
[2022-07-11 05:48] LABS: ALKALINE PHOSPHATASE 81 U/L (46-116); BUN 9 mg/dl (9-23); CHLORIDE 107 mmol/L (98-107); POTASSIUM 3.6 mmol/L (3.4-5.1); SGPT/ALT 9 U/L (10-49); TOTAL PROTEIN 6.6 gm/dL (6.0-8.0)
[2022-07-11 06:01] LABS: BASO # 0.1 10*3/uL (0.0-0.1); BASO % 0.6 % (0.0-1.0); EOS # 0.2 10*3/uL (0.0-0.4); EOS % 1.9 % (1.0-4.0); HEMATOCRIT 43.6 % (37.0-47.0); LYMPH # 0.4 10*3/uL (1.3-4.4); LYMPH % 4.5 % (27.0-41.0); MEAN CELL VOLUME 89.5 fl (81.0-99.0); MEAN CORPUSCULAR HGB CONC 33.5 g/dl (33.0-37.0); MEAN PLATELET VOLUME 10.5 fl (9.6-12.3); MONO # 0.9 10*3/uL (0.1-1.0); MONO % 11.6 % (3.0-9.0); NEUT # 6.3 10*3/uL (2.3-7.9); NEUT % 78.9 % (47.0-73.0); PLATELET COUNT AUTOMATED 255 10*3/uL (130-400); RED BLOOD COUNT 4.87 10*6/uL (4.10-5.10); RED CELL DISTRI WIDTH 14.4 % (0-14.5)
== END 2022-07-11 07:49 | disposition home or self-care (01) ==
LOC: ED 03:00
PROVIDERS: Emergency Medicine
DX: U07.1 COVID-19 (principal); K21.9 Gastro-esophageal reflux disease without esophagitis; F32.A Depression, unspecified; J44.9 Chronic obstructive pulmonary disease, unspecified; F41.9 Anxiety disorder, unspecified; Z88.1 Allergy status to other antibiotic agents; Z88.5 Allergy status to narcotic agent; Z88.8 Allergy status to other drugs, medicaments and biological substances; Z98.51 Tubal ligation status; Z90.89 Acquired absence of other organs; F17.200 Nicotine dependence, unspecified, uncomplicated

== ENCOUNTER 2022-07-14 05:17 | Emergency (ER) | payer OTHER ==
[~2022-07-14] VITALS: Ht 165.1 cm; Wt 69.4 kg
[2022-07-14 05:59] LABS: BASO % 0.4 % (0.0-1.0); HEMATOCRIT 48.6 % (37.0-47.0); LYMPH # 1.5 10*3/uL (1.3-4.4); MEAN CELL VOLUME 88.2 fl (81.0-99.0); MEAN CORPUSCULAR HGB CONC 32.9 g/dl (33.0-37.0); MEAN PLATELET VOLUME 10.5 fl (9.6-12.3); MONO # 0.5 10*3/uL (0.1-1.0); MONO % 10.2 % (3.0-9.0); NEUT # 2.5 10*3/uL (2.3-7.9); NEUT % 55.3 % (47.0-73.0); PLATELET COUNT AUTOMATED 215 10*3/uL (130-400); RED BLOOD COUNT 5.51 10*6/uL (4.10-5.10); RED CELL DISTRI WIDTH 14.3 % (0-14.5); WHITE BLOOD COUNT 4.6 10*3/uL (4.8-10.8)
[2022-07-14 06:22] LABS: ACT PARTIAL THROMBO TIME 30.2 SECONDS (20.0-32.1)
[2022-07-14 06:30] LABS: ALKALINE PHOSPHATASE 84 U/L (46-116); BUN 6 mg/dl (9-23); CHLORIDE 105 mmol/L (98-107); LIPASE 35 U/L (12-53); POTASSIUM 3.5 mmol/L (3.4-5.1); SGPT/ALT 14 U/L (10-49); TOTAL PROTEIN 6.9 gm/dL (6.0-8.0)
[2022-07-14] MEDS ORDERED: DECADRON4 MG PO ×2 (06:45)
[2022-07-14] MEDS ORDERED: LAMOTRIGINE25 M1 PO (23:03)
[2022-07-14] MEDS ORDERED: PEPCID20 MG PO (23:19)
[2022-07-17] MEDS ORDERED: CIPRO500 MG PO (08:09)
[2022-07-17] MEDS ORDERED: PREDNISONE5 MG PO (08:09)
[2022-07-17] MEDS ORDERED: Ipratropium Brom3 ML INH (08:10)
[2022-07-17] MEDS ORDERED: NEBULIZER (08:10)
== END 2022-07-14 06:58 | disposition home or self-care (01) ==
LOC: ED 05:17
PROVIDERS: Emergency Medicine
DX: R11.2 Nausea with vomiting, unspecified (principal); R10.13 Epigastric pain; U07.1 COVID-19; K21.9 Gastro-esophageal reflux disease without esophagitis; F41.9 Anxiety disorder, unspecified; F32.A Depression, unspecified; J44.9 Chronic obstructive pulmonary disease, unspecified; Z88.1 Allergy status to other antibiotic agents; Z88.5 Allergy status to narcotic agent; Z98.51 Tubal ligation status; Z90.89 Acquired absence of other organs; F17.200 Nicotine dependence, unspecified, uncomplicated

== ENCOUNTER 2022-12-10 20:50 | Emergency (ER) | payer OTHER ==
[~2022-12-10] VITALS: Ht 152.4 cm; Wt 63.5 kg
[~2022-12-10 20:50] MED LIST changes: +CIPRO500 MG PO; +DECADRON4 MG PO; +Ipratropium Brom3 ML INH; +NEBULIZER
[2022-12-10 21:12] LABS: BASO # 0.1 10*3/uL (0.0-0.1); BASO % 0.9 % (0.0-1.0); EOS # 0.3 10*3/uL (0.0-0.4); EOS % 3.1 % (1.0-4.0); HEMATOCRIT 46.4 % (37.0-47.0); LYMPH # 3.6 10*3/uL (1.3-4.4); LYMPH % 32.8 % (27.0-41.0); MEAN CELL VOLUME 90.3 fl (81.0-99.0); MEAN CORPUSCULAR HGB 30.5 pg (27.0-31.0); MEAN CORPUSCULAR HGB CONC 33.8 g/dl (33.0-37.0); MEAN PLATELET VOLUME 9.9 fl (9.6-12.3); MONO % 9.5 % (3.0-9.0); NEUT # 5.8 10*3/uL (2.3-7.9); NEUT % 53.3 % (47.0-73.0); PLATELET COUNT AUTOMATED 325 10*3/uL (130-400); RED BLOOD COUNT 5.14 10*6/uL (4.10-5.10); RED CELL DISTRI WIDTH 13.5 % (0-14.5)
[2022-12-10] MEDS ORDERED: METOPROLOL SUCC50 M1 PO (21:15)
[2022-12-10 21:34] LABS: ALKALINE PHOSPHATASE 84 U/L (46-116); BUN 7 mg/dl (9-23); CHLORIDE 109 mmol/L (98-107); LIPASE 38 U/L (12-53); POTASSIUM 3.9 mmol/L (3.4-5.1); SGPT/ALT 9 U/L (5-49); TOTAL PROTEIN 6.8 gm/dL (6.0-8.0)
[2022-12-10 21:35] LABS: BILIRUBIN Negative (Negative); BLOOD Negative (Negative); CLARITY Clear (Clear); COLOR Yellow (Yellow); GLUCOSE Negative (Negative); KETONE Negative (Negative); LEUKO ESTERASE Negative (Negative); NITRITE Negative (Negative); PH 5.5 (4.5-8.0); SPECIFIC GRAVITY <= 1.005 (1.001-1.030); UROBILINOGEN 0.2 E.U./dl (0.0-1.0)
[2022-12-10 21:41] LABS: URINE AMPHETAMINES Negative (1000ng/ml); URINE BARBITURATES Negative (200ng/ml); URINE BENZODIAZEPINES Positive (200ng/ml); URINE CANNABINOIDS (THC) Negative (50ng/ml); URINE COCAINE Negative (300ng/ml); URINE METHADONE Negative (300ng/ml); URINE OPIATES Negative (300ng/ml); URINE PHENCYCLIDINE Negative (25ng/ml)
[2022-12-10 21:43] LABS: ETHYL ALCOHOL < 3.0 mg/dl (<3)
[2022-12-10] MEDS ORDERED: REGLAN10 M1 PO (23:30)
== END 2022-12-10 23:36 | disposition home or self-care (01) ==
LOC: ED 20:50
PROVIDERS: Internal Medicine
DX: G43.909 Migraine, unspecified, not intractable, without status migrainosus (principal); F41.9 Anxiety disorder, unspecified; F17.210 Nicotine dependence, cigarettes, uncomplicated; Z88.5 Allergy status to narcotic agent; Z88.1 Allergy status to other antibiotic agents; Z88.6 Allergy status to analgesic agent; Z88.8 Allergy status to other drugs, medicaments and biological substances; Z79.899 Other long term (current) drug therapy; Z98.890 Other specified postprocedural states; Z98.51 Tubal ligation status; Z90.89 Acquired absence of other organs

== ENCOUNTER → 2023-07-29 | Outpatient (CLI) | payer OTHER ==
[~2023-07-29] MED LIST changes: +METOPROLOL SUCC50 M1 PO; +REGLAN10 M1 PO
== END | disposition home or self-care (01) ==
LOC: US 00:26
PROVIDERS: ATTEND Nurse Practitioner Family
DX: K76.0 Fatty (change of) liver, not elsewhere classified (principal)

== ENCOUNTER 2024-02-26 10:14 | Emergency (ER) | payer OTHER ==
[2024-02-26] MEDS ORDERED: DIAZEPAM 10 MG/2 ML SYR IV ONE (10:20)
[2024-02-26] MEDS ORDERED: SODIUM CHLORIDE 0.9% 1,000 ML IV ONE (10:20)
[2024-02-26] MEDS ORDERED: AZITHROMYCIN 250 MG TAB PO ONE (10:20)
[2024-02-26] MEDS ORDERED: Albuterol Sulfate 2.5 MG/3 ML VIAL NEB ONE (10:20)
[2024-02-26] MEDS ORDERED: methylPREDNISolone sod succ 125 MG VIAL IV ONE (10:20)
[2024-02-26 10:40] LABS: BASO # 0.1 10*3/uL (0.0-0.1); BASO % 0.6 % (0.0-1.0); EOS # 0.1 10*3/uL (0.0-0.4); EOS % 1.5 % (1.0-4.0); HEMATOCRIT 46.4 % (37.0-47.0); MEAN CELL VOLUME 89.7 fl (81.0-99.0); MEAN CORPUSCULAR HGB 29.8 pg (27.0-31.0); MEAN CORPUSCULAR HGB CONC 33.2 g/dl (33.0-37.0); MEAN PLATELET VOLUME 10.2 fl (9.6-12.3); MONO # 0.7 10*3/uL (0.1-1.0); MONO % 8.5 % (3.0-9.0); NEUT # 5.7 10*3/uL (2.3-7.9); NEUT % 64.9 % (47.0-73.0); PLATELET COUNT AUTOMATED 271 10*3/uL (130-400); RED BLOOD COUNT 5.17 10*6/uL (4.10-5.10); RED CELL DISTRI WIDTH 13.5 % (0-14.5); WHITE BLOOD COUNT 8.7 10*3/uL (4.8-10.8)
[2024-02-26 11:00] LABS: BUN 7 mg/dl (9-23); CHLORIDE 106 mmol/L (98-107)
[2024-02-26] MEDS ORDERED: AVPAK AZITHROM250 M1 PO (11:21)
[2024-02-26] MEDS ORDERED: PREDNISONE20 M1 PO (11:21)
== END 2024-02-26 11:36 | disposition home or self-care (01) ==
LOC: ED 10:14
PROVIDERS: Emergency Medicine
DX: J44.1 Chronic obstructive pulmonary disease with (acute) exacerbation (principal); F41.9 Anxiety disorder, unspecified; K21.9 Gastro-esophageal reflux disease without esophagitis; F32.A Depression, unspecified; F17.210 Nicotine dependence, cigarettes, uncomplicated; Z88.5 Allergy status to narcotic agent; Z88.1 Allergy status to other antibiotic agents; Z88.8 Allergy status to other drugs, medicaments and biological substances; Z90.89 Acquired absence of other organs